=== PATIENT | female | born 1940 | race Two or more races ===

== ENCOUNTER 2017-02-02 08:00 | Outpatient (CLI) | payer MEDICARE, OTHER | END 2017-02-02 08:01 | disposition home or self-care (01) | DX: I10 Essential (primary) hypertension (principal); E78.1 Pure hyperglyceridemia; K21.9 Gastro-esophageal reflux disease without esophagitis ==

== ENCOUNTER 2017-03-30 11:44 | Outpatient (CLI) | payer MEDICARE, OTHER ==
--- NOTE | 2017-03-31 15:39 | Mammography Report ---
DIGITAL SCREENING MAMMOGRAM: 03/30/2017 CLINICAL INDICATION: A 76-year-old, for screening. COMPARISON: 05/2014, 12/2012, 07/2011, 02/2010. TECHNIQUE: Routine CC and MLO projections were obtained of the breasts. FINDINGS: The breasts demonstrate heterogeneously dense fibroglandular parenchyma bilaterally. Punct ate, typically benign calcifications are present. No suspicious masses, clustered microcalcifications , or regions of architectural distortion are identified. IMPRESSION: BENIGN FINDINGS. RECOMMENDATION: ROUTINE ANNUAL SCREENING UNLESS OTHERWISE CLINICALLY INDICATED. BIRADS CATEGORY 2-BENIGN FINDINGS. STANDARD QUALIFYING STATEMENTS 1. This examination was reviewed with the aid of Computer-Aided Detection (CAD). 2. A negative or benign imaging report should not delay biopsy if clinically suspicious findings are present. Consider surgical consultation if warranted. More than 5% of cancers are not identified by i maging. 3. Dense breasts may obscure an underlying neoplasm. JOB #: [id number] EXT JOB #:[id number]
== END 2017-03-30 11:45 | disposition home or self-care (01) ==
LOC: DI 11:44
PROVIDERS: ATTEND Physician Assistant Medical
DX: Z12.31 Encounter for screening mammogram for malignant neoplasm of breast (principal)
CPT/HCPCS: 77067

== ENCOUNTER 2017-08-10 04:53 | Emergency (ER) | payer MEDICARE, OTHER ==
[2017-08-10] MEDS ORDERED: IPRATROPIUM/ALBUTEROL 3 ML NEB INH STA (05:07)
--- NOTE | 2017-08-10 05:11 | ED Physician Documentation ---
PD HPI DYSPNEA - Stated complaint Stated Complaint: SHORTNESS OF BREATH - Chief complaint Chief Complaint: Resp - History obtained from History obtained from: Patient, Family - History of Present Illness Timing - onset: How many weeks ago (3) Timing - onset during: Rest Timing - details: Intermittant, Waxing and waning Improved by: Inhaler/neb Worsened by: Exertion Associated symptoms: Cough, Wheezing. No: Fever, Chest pain / discomfort, Bilateral edema, Unilateral edema Similar symptoms before: Work up / diagnostics, Treatment Recently seen: Clinic - Additional information Additional information: Patient is a 77 year old female with no significant past medical history who is presenting to the emergency department for gurgling in her throat. Patient states that it has been going on for three weeks. Patient states that she saw her pmd who did a chest x-ray and told her she had bronchitis. Patient states that she heard the gurgling tonight so she came in for evaluation. Review of Systems Constitutional: denies: Fever, Chills Eyes: denies: Loss of vision, Photophobia Ears: denies: Ear pain, Drainage/discharge, Foreign body Nose: reports: Congestion. denies: Rhinorrhea / runny nose, Sinus pressure / pain Throat: denies: Sore throat Cardiac: denies: Chest pain / pressure, Palpitations Respiratory: reports: Dyspnea, Cough, Wheezing GI: denies: Abdominal Pain, Nausea, Vomiting, Constipation, Diarrhea : denies: Dysuria, Frequency Skin: denies: Rash, Lesions Musculoskeletal: denies: Neck pain, Back pain, Extremity swelling Neurologic: denies: Generalized weakness, Focal weakness, Headache, Head injury , LOC Immunocompromised: denies: Immunocompromised PD PAST MEDICAL HISTORY - Past Medical History Cardiovascular: Hypertension, High cholesterol Respiratory: None Neuro: TIA Endocrine/Autoimmune: None GI: GERD : None Musculoskeletal: Osteoarthritis Derm: Eczema - Past Surgical History 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 HEENT: Tonsil/Adenoidectomy - Present Medications Home Medications: Ambulatory Orders Medication Instructions Recorded Confirmed Atenolol 50 mg PO DAILY 01/02/15 08/10/17 Lisinopril 5 mg PO DAILY 01/02/15 08/10/17 Pravastatin Sodium 40 mg PO DAILY 01/02/15 08/10/17 Aspirin 325 mg pe PO DAILY 05/17/16 08/10/17 Esomeprazole Magnesium [Nexium] 20 mg PO BID 07/16/16 08/10/17 Albuterol Sulfate [Proventil Hfa 1 - 2 puffs INH Q4H PRN #1 inhaler 08/10/17 Inhaler] Calcium Carbonate/Vitamin D3 1 each PO DAILY 08/10/17 08/10/17 [Calcium 500-Vit D3 600 Caplet] Cholecalciferol (Vitamin D3) 2,000 unit PO DAILY 08/10/17 08/10/17 [Vitamin D] Krill/[place]-3/Dha/Epa/Lipids 1 each PO DAILY 08/10/17 08/10/17 [Krill Oil 350 mg Softgel] L. Acidophilus/L. Rhamnosus 1 each PO DAILY 08/10/17 08/10/17 [Probiotic 15 Billion Cell Cap] Ubidecarenone [Co Q-10] 10 mg PO DAILY 08/10/17 08/10/17 Zinc 50 mg PO DAILY 08/10/17 08/10/17 - Allergies Allergies/Adverse Reactions: Allergies Allergy/AdvReac Type Severity Reaction Status Date / Time Sulfa (Sulfonamide AdvReac Mild bone ache Verified 07/16/16 13:08 Antibiotics) - Social History Does the pt smoke?: No Smoking Status: Never smoker Does the pt drink ETOH?: No Does the pt have substance abuse?: No - Immunizations Immunizations are current?: Yes PD ED PE NORMAL - Vitals Vital signs reviewed: Yes - General General: Alert and oriented X 3, No acute distress - HEENT HEENT: Atraumatic, PERRL, Pharynx benign - Neck Neck: Supple, no meningeal sign, No JVD - Cardiac Cardiac: RRR, No murmur - Abdomen Abdomen: Soft, Non tender, Non distended - Derm Derm: Normal color, Warm and dry, No rash - Extremities Extremities: No deformity, No edema, No calf tenderness / cord - Neuro Neuro: Alert and oriented X 3, No motor deficit, No sensory deficit, Normal speech - Psych Psych: Normal mood PD ED PE EXPANDED - Respiratory Respiratory: Wheezing, Right upper lobe, Right middle lobe, Left upper lobe, Left lower lobe. No: Accessory mm use Results - Vitals Vitals: Vital Signs - 24 hr 08/10/17 08/10/17 08/10/17 05:02 05:30 06:15 Temperature 36.0 C L Heart Rate 88 88 101 H Respiratory 20 20 18 Rate Blood Pressure 175/91 H 164/64 H O2 Saturation 95 95 08/10/17 07:04 Temperature Heart Rate 89 Respiratory 18 Rate Blood Pressure 163/79 H O2 Saturation 100 Oxygen O2 Source Room air - EKG (time done) 0505 Rate: Rate (enter#) (87) Rhythm: NSR, Other (muliple pvcs) Orient: Normal QRS: Normal Compare to prior EKG: Old EKG unavailable - Labs Labs: Laboratory Tests 08/10/17 08/10/17 08/10/17 05:52 05:52 05:52 WBC 8.6 RBC 4.02 L Hgb 12.4 Hct 39.0 MCV 97.1 MCH 31.0 MCHC 31.9 L RDW 13.6 Plt Count 168 MPV 9.9 Neut # 6.0 Lymph # 1.8 [place] # 0.5 Eos # 0.2 Baso # 0.1 Absolute Nucleated RBC 0.00 Nucleated RBC % 0.0 Sodium 141 Potassium 4.5 Chloride 111 Carbon Dioxide 23 Anion Gap 7.0 BUN 27 H Creatinine 1.1 H Estimated GFR (MDRD) 48 L Glucose 106 H Calcium 9.1 Total Bilirubin 0.3 AST 36 ALT 41 Alkaline Phosphatase 113 Troponin I < 0.04 B-Natriuretic Peptide Total Protein 6.5 L Albumin 3.5 Globulin 3.0 Albumin/Globulin Ratio 1.2 Lipase 36 08/10/17 05:52 WBC RBC Hgb Hct MCV MCH MCHC RDW Plt Count MPV Neut # Lymph # [place] # Eos # Baso # Absolute Nucleated RBC Nucleated RBC % Sodium Potassium Chloride Carbon Dioxide Anion Gap BUN Creatinine Estimated GFR (MDRD) Glucose Calcium Total Bilirubin AST ALT Alkaline Phosphatase Troponin I B-Natriuretic Peptide 620 H Total Protein Albumin Globulin Albumin/Globulin Ratio Lipase - Rads (name of study) chest x-ray Radiology: Final report received (small pleural effusion), EMP read contemporaneously (effusion is trace if at all) PD MEDICAL DECISION MAKING - ED course Complexity details: reviewed old records, reviewed results, re-evaluated patient , considered differential, d/w patient, d/w family ED course: Patient was seen and examined at bedside. breathing treatments were ordered for the patient. imaging and ekg was ordered. Patient was found to have irregularities on ekg, but patient stated that she had a known ekg abnormalities. Patient responded well to the breathing treatments. Patient's bnp was slightly elevated but there was no sign of edema. Patient was given the offer of coming into the hospital to stay but stated that she would rather go home and follow up with her doctor. Patient was given strict discharge and return instructions and was stable for discharge with outpatient follow up. Departure - Departure Disposition: Home, Self Care Clinical Impression: Bronchitis Condition: Good Instructions: ED Bronchitis Asthmatic Follow-Up: Claudia Puentes PA-C [Primary Care Provider] - Within 3 Days Prescriptions: Albuterol Sulfate [Proventil Hfa Inhaler] 1 - 2 puffs INH Q4H PRN #1 inhaler PRN Reason: Shortness Of Air/Wheezing Comments: Your diagnostics today showed a slight elevation in your bnp. You should follow up with your pmd today to schedule an echocardiogram. there was no significant fluid collection but it could be contributing to your shortness of breath. It is important that you return to the emergency department for new, worsening or uncontrollable symptoms. Discharge Date/Time: 08/10/17 07:04
[2017-08-10] MEDS ORDERED: IPRATROPIUM/ALBUTEROL 3 ML NEB INH ONE (05:27)
--- NOTE | 2017-08-10 05:48 | XRAY Preliminary Report ---
Exam: XR Chest 2 View PA/LAT IMPRESSION: Nonspecific bilateral effusions, right greater than left. [facility] SITE ID: [id number]
[2017-08-10 06:08] LABS: BASOPHILS # (AUTO) 0.1 10^3/uL (0.0-0.1); BASOPHILS % (AUTO) 0.9 %; EOSINOPHILS # (AUTO) 0.2 10^3/uL (0.0-0.7); EOSINOPHILS % (AUTO) 2.7 %; HGB - HEMOGLOBIN 12.4 g/dL (12.0-16.0); LYMPHOCYTES # (AUTO) 1.8 10^3/uL (1.5-3.5); LYMPHOCYTES % (AUTO) 21.1 %; MEAN CORPUSCULAR HGB CONC 31.9 g/dL (32.0-36.0); MEAN CORPUSCULAR VOLUME 97.1 fL (81.0-99.0); MEAN PLATELET VOLUME 9.9 fL (7.9-10.8); MONOCYTES # (AUTO) 0.5 10^3/uL (0.0-1.0); NEUTROPHILS % (AUTO) 69.3 %; RED BLOOD COUNT 4.02 10^6/uL (4.20-5.40); RED CELL DISTRIBUTION WIDTH 13.6 % (12.0-15.0); UNCORRECTED WHITE BLOOD COUNT 8.6 x10^3/uL; WHITE BLOOD COUNT 8.6 x10^3/uL (4.8-10.8)
[2017-08-10 06:22] LABS: ALBUMIN/GLOBULIN RATIO 1.2 (1.0-2.2); BILIRUBIN,TOTAL 0.3 mg/dL (0.2-1.0); CALCIUM 9.1 mg/dL (8.5-10.3); CREATININE 1.1 mg/dL (0.4-1.0); POTASSIUM 4.5 mmol/L (3.5-5.0); TOTAL PROTEIN 6.5 g/dL (6.7-8.2)
--- NOTE | 2017-08-10 06:25 | XRAY Report ---
EXAM: CHEST RADIOGRAPHY EXAM DATE: 08/10/2017 05:16 AM. CLINICAL HISTORY: Shortness of breath, nonproductive cough. COMPARISON: None. TECHNIQUE: 2 views. FINDINGS: Lungs/Pleura: There is a small right-sided pleural effusion. Minimal left effusion. No consolidation. No pneumothorax. Mediastinum: Normal heart size. Other: None. IMPRESSION: Nonspecific bilateral effusions, right greater than left. [facility] Referring Provider Line: [phone] SITE ID: [id number]
[2017-08-10 07:04] VITALS: BP 163/79
== END 2017-08-10 07:04 | disposition home or self-care (01) ==
LOC: ED 04:53
DX: J40 Bronchitis, not specified as acute or chronic (principal); I10 Essential (primary) hypertension; E78.00 Pure hypercholesterolemia, unspecified; Z86.73 Personal history of transient ischemic attack (TIA), and cerebral infarction without residual deficits; K21.9 Gastro-esophageal reflux disease without esophagitis; M19.90 Unspecified osteoarthritis, unspecified site
CPT/HCPCS: 36415; 71020; 80053; 83690; 83880; 84484; 85025; 93005; 94640; 99283; J7620

== ENCOUNTER 2017-08-12 12:39 | Outpatient (CLI) | payer MEDICARE, OTHER | END 2017-08-12 12:40 | disposition home or self-care (01) | LOC: DI 12:39 | PROVIDERS: ATTEND Physician Assistant Medical | DX: R06.09 Other forms of dyspnea (principal); I08.1 Rheumatic disorders of both mitral and tricuspid valves | CPT/HCPCS: 93306 ==

== ENCOUNTER 2017-08-25 09:57 | Outpatient (CLI) | payer MEDICARE, OTHER ==
[2017-08-26 09:41] LABS: CALCIUM 9.5 mg/dL (8.5-10.3); CREATININE 1.5 mg/dL (0.4-1.0); POTASSIUM 4.8 mmol/L (3.5-5.0)
== END 2017-08-25 09:58 | disposition home or self-care (01) ==
LOC: LAB.WCP 09:57
PROVIDERS: ATTEND Family Medicine
DX: I50.9 Heart failure, unspecified (principal)
CPT/HCPCS: 36415; 80048; 83880

== ENCOUNTER 2017-11-01 08:00 | Outpatient (CLI) | payer MEDICARE, OTHER ==
[2017-11-01 13:32] LABS: BUN - BLOOD UREA NITROGEN 21 mg/dL (6-20); CALCIUM 9.3 mg/dL (8.5-10.3); CARBON DIOXIDE - CO2 26 mmol/L (21-32); CHLORIDE 103 mmol/L (101-111); CHOL/HDL RATIO 3.1 (<4.4); CHOLESTEROL 129 mg/dL; CREATININE 1.1 mg/dL (0.4-1.0); GFR - MDRD 48 (>89); GLUCOSE 77 mg/dL (70-100); HDL CHOLESTEROL 42 mg/dL; LDL CHOLESTEROL,CALCULATED 62 mg/dL; LDL/HDL RATIO 1.5 (<4.4); MAGNESIUM 2.3 mg/dL (1.7-2.8); SODIUM 137 mmol/L (135-145); VLDL CHOLESTEROL 25 mg/dL
== END 2017-11-01 08:01 | disposition home or self-care (01) ==
LOC: LAB.WCP 08:00
PROVIDERS: ATTEND Internal Medicine Cardiovascular Disease
DX: I10 Essential (primary) hypertension (principal); R00.2 Palpitations
CPT/HCPCS: 36415; 80048; 80061; 83735; 84443; 86430

== ENCOUNTER → 2017-11-03 | Outpatient (CLI) | payer MEDICARE, OTHER | LOC: LAB.R 08:00 | PROVIDERS: ATTEND Physician Assistant Medical | DX: R19.7 Diarrhea, unspecified (principal) | CPT/HCPCS: 81599; 83630; 87045; 87046; 87177; 87209; 87338; 87493 ==

== ENCOUNTER 2017-11-16 08:00 | Outpatient (CLI) | payer MEDICARE, OTHER ==
[2017-11-16 20:40] LABS: H. PYLORIS ANTIGEN STL NEGATIVE (Negative)
== END 2017-11-16 08:01 | disposition home or self-care (01) ==
LOC: LAB.R 08:00
PROVIDERS: ATTEND Physician Assistant Medical
DX: R19.7 Diarrhea, unspecified (principal)
CPT/HCPCS: 81599; 83630; 87045; 87046; 87177; 87209; 87329; 87338; 87493

== ENCOUNTER 2017-12-29 08:00 | Outpatient (CLI) | payer MEDICARE, OTHER ==
[2017-12-29 19:01] LABS: BASOPHILS # (AUTO) 0.1 10^3/uL (0.0-0.1); BASOPHILS % (AUTO) 0.9 %; EOSINOPHILS # (AUTO) 0.1 10^3/uL (0.0-0.7); EOSINOPHILS % (AUTO) 0.9 %; HGB - HEMOGLOBIN 12.7 g/dL (12.0-16.0); LYMPHOCYTES # (AUTO) 2.2 10^3/uL (1.5-3.5); LYMPHOCYTES % (AUTO) 20.4 %; MEAN CORPUSCULAR HGB CONC 31.2 g/dL (32.0-36.0); MEAN CORPUSCULAR VOLUME 99.1 fL (81.0-99.0); MEAN PLATELET VOLUME 13.6 fL (7.9-10.8); MONOCYTES # (AUTO) 0.9 10^3/uL (0.0-1.0); MONOCYTES % (AUTO) 8.3 %; NEUTROPHILS # (AUTO) 7.5 10^3/uL (1.5-6.6); NEUTROPHILS % (AUTO) 69.5 %; PLT - PLATELET COUNT 173 10^3/uL (130-450); RED BLOOD COUNT 4.11 10^6/uL (4.20-5.40); WHITE BLOOD COUNT 10.8 x10^3/uL (4.8-10.8)
[2017-12-29 19:24] LABS: ALBUMIN 3.6 g/dL (3.2-5.5); ALBUMIN/GLOBULIN RATIO 1.2 (1.0-2.2); BILIRUBIN,TOTAL 0.7 mg/dL (0.2-1.0); CALCIUM 8.9 mg/dL (8.5-10.3); CREATININE 1.1 mg/dL (0.4-1.0); TOTAL PROTEIN 6.5 g/dL (6.7-8.2)
== END 2017-12-29 08:01 | disposition home or self-care (01) ==
LOC: LAB.WCP 08:00
PROVIDERS: ATTEND Physician Assistant Medical
DX: K52.9 Noninfective gastroenteritis and colitis, unspecified (principal)
CPT/HCPCS: 36415; 80053; 83516; 83690; 85025; 85651

== ENCOUNTER 2018-05-02 09:25 | Outpatient (CLI) | payer MEDICARE, OTHER ==
--- NOTE | 2018-05-02 11:00 | Ultrasound Report ---
Procedure Date: 05/02/2018 Accession Number: [id number] / [id number] Procedure: US - Abdomen Limited CPT Code: FULL RESULT: EXAM: Abdomen Limited DATE: 05/02/2018 10:42 AM CLINICAL HISTORY: DIARRHEA,CHRONIC COMPARISON: None. TECHNIQUE: Real-time scanning was performed with static images obtained. FINDINGS: The liver measures 13 cm. Hepatic echotexture is normal. No intrahepatic biliary dilatation. The gallbladder demonstrates a small focus of adenomyomatosis of the wall. No cholelithiasis, gallbladder wall thickening, or pericholecystic fluid is present. The common bile duct measures 4 mm. The right kidney measures 8.1 cm, and demonstrates no hydronephrosis. IMPRESSION: Incidental adenomyomatosis of the gallbladder wall. No evidence of cholelithiasis or biliary obstruction. [facility]
== END 2018-05-02 09:26 | disposition home or self-care (01) ==
LOC: DI 09:25
PROVIDERS: ATTEND Physician Assistant Medical
DX: K52.9 Noninfective gastroenteritis and colitis, unspecified (principal)
CPT/HCPCS: 76705

== ENCOUNTER 2019-07-06 08:00 | Outpatient (CLI) | payer MEDICARE, OTHER ==
[2019-07-06 11:51] LABS: BASOPHILS # (AUTO) 0.1 10^3/uL (0.0-0.1); BASOPHILS % (AUTO) 0.7 %; LYMPHOCYTES # (AUTO) 2.5 10^3/uL (1.5-3.5); MEAN CORPUSCULAR VOLUME 103.4 fL (81.0-99.0); RED BLOOD COUNT 3.77 10^6/uL (4.20-5.40); RED CELL DISTRIBUTION WIDTH 13.2 % (12.0-15.0)
[2019-07-06 12:03] LABS: EOSINOPHILS # (AUTO) 0.5 10^3/uL (0.0-0.7); EOSINOPHILS % (AUTO) 4.4 %; HGB - HEMOGLOBIN 12.2 g/dL (12.0-16.0); LYMPHOCYTES % (AUTO) 23.7 %; MEAN CORPUSCULAR HEMOGLOBIN 32.4 pg (27.0-31.0); MEAN CORPUSCULAR HGB CONC 31.3 g/dL (32.0-36.0); MEAN PLATELET VOLUME 13.6 fL (7.9-10.8); MONOCYTES # (AUTO) 0.9 10^3/uL (0.0-1.0); MONOCYTES % (AUTO) 8.2 %; NEUTROPHILS # (AUTO) 6.7 10^3/uL (1.5-6.6); NEUTROPHILS % (AUTO) 62.4 %; PLT - PLATELET COUNT 165 10^3/uL (130-450); WHITE BLOOD COUNT 10.7 x10^3/uL (4.8-10.8)
[2019-07-06 12:18] LABS: ALBUMIN 3.5 g/dL (3.2-5.5); ALBUMIN/GLOBULIN RATIO 1.1 (1.0-2.2); ALKALINE PHOSPHATASE 96 IU/L (42-121); ALT ALANINE AMINOTRANSFERASE 15 IU/L (10-60); AST ASPARTATE AMINOTRANSFERASE 17 IU/L (10-42); BILIRUBIN,TOTAL 0.4 mg/dL (0.2-1.0); BUN - BLOOD UREA NITROGEN 19 mg/dL (6-20); CALCIUM 8.9 mg/dL (8.5-10.3); CARBON DIOXIDE - CO2 27 mmol/L (21-32); CHLORIDE 110 mmol/L (101-111); CHOLESTEROL 128 mg/dL; CREATININE 1.1 mg/dL (0.4-1.0); GFR - MDRD 48 (>89); GLUCOSE 93 mg/dL (70-100); HDL CHOLESTEROL 65 mg/dL; LDL CHOLESTEROL,CALCULATED 35 mg/dL; LDL/HDL RATIO 0.5 (<4.4); SODIUM 143 mmol/L (135-145); TOTAL PROTEIN 6.6 g/dL (6.7-8.2); VLDL CHOLESTEROL 28 mg/dL
[2019-07-06 13:11] LABS: PLATELET ESTIMATE, MANUAL NORMAL (130-450,000) (NORMAL); PLATELET MORPHOLOGY 1+ LARGE PLATELETS (NORMAL); RBC MORPHOLOGY (MULTIPLE) 1+ MACROCYTOSIS (NORMAL)
== END 2019-07-06 23:59 | disposition home or self-care (01) ==
LOC: LAB.WCP 08:00
PROVIDERS: ATTEND Physician Assistant Medical
DX: E78.1 Pure hyperglyceridemia (principal); J30.9 Allergic rhinitis, unspecified
CPT/HCPCS: 36415; 80053; 80061; 83721; 85025

== ENCOUNTER 2019-12-26 17:11 | Observation (INO) | payer MEDICARE, OTHER ==
--- NOTE | 2019-12-26 17:33 | ED Physician Documentation ---
PD HPI FOCAL NEURO - Stated complaint Stated Complaint: STROKE LIKE SYMPT - Chief complaint Chief Complaint: Neuro - History obtained from History obtained from: Patient, Family - History of Present Illness Timing - onset: Other (Last seen normal approximately an hour and a half ago) Severity of deficit: Mild Weakness: Face, Right. No: Arm, Hand, Leg, Foot, Left Numbness: No: Face, Arm, Hand, Leg, Foot, Right, Left Associated symptoms: No: Headache, Nausea / vomiting, Seizure, Syncope, Fall, Head injury, Chest pain, Neck pain, Back pain, Fever Contributing factors: negative: Anticoagulated Baseline status: positive: A&OX3, ambulatory, indep Similar symptoms before: Diagnosis (Has had a TIA in the past) Recently seen: Not recently seen - Additional information Additional information: Patient states she is felt like she has had difficulty finding her words all day today. She states she has felt mildly confused. noticed the right facial droop approximately 45 minutes prior to arrival. He last saw her about 45 minutes to an hour before that. He states that his dramatically improved since they were at home. 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 Acidophilus/L. Rhamnosus 1 each PO DAILY 08/10/17 08/10/17 [Probiotic 15 Billion Cell Cap] Ubidecarenone [Co Q-10] 10 mg PO DAILY 08/10/17 08/10/17 Zinc 50 mg PO DAILY 08/10/17 08/10/17 - Allergies Allergies/Adverse Reactions: Allergies Allergy/AdvReac Type Severity Reaction Status Date / Time Sulfa (Sulfonamide AdvReac Mild bone ache Verified 12/26/19 17:14 Antibiotics) - Social History Does the pt smoke?: No Smoking Status: Never smoker Does the pt drink ETOH?: No Does the pt have substance abuse?: No - Immunizations Immunizations are current?: Yes PD ED PE NORMAL - Vitals Vital signs reviewed: Yes - General General: Alert and oriented X 3, No acute distress, Well developed/nourished - HEENT HEENT: Moist mucous membranes, Other (Patient also has mild swelling to the right side of the face. No gingival abscess. No dental abscess. No erythema) - Neck Neck: Supple, no meningeal sign - Cardiac Cardiac: RRR, Strong equal pulses - Respiratory Respiratory: No respiratory distress, Clear bilaterally - Abdomen Abdomen: Soft, Non tender, Non distended - Back Back: No spinal TTP - Derm Derm: Warm and dry - Extremities Extremities: No edema - Neuro Neuro: Alert and oriented X 3, No sensory deficit, Normal speech - Psych Psych: Normal mood, Normal affect NIHSS - Time Time: 17:25 - Level of Consciousness Level of consciousness: (0) Alert, Keenly responsive LOC Questions: (0) Answers both Q's correct LOC Commands: (0) Performs both correctly - Gaze Best Gaze: (0) Normal - Visual Visual: (0) No loss - Facial Palsy Facial Palsy: (1) Minor paralysis - Motor Arms (both separate) Motor Arm (right): (0) No drift Motor Arm (left): (0) No drift - Motor Legs (both separate) Motor Leg (right): (0) No drift Motor Leg (left): (0) No drift - Limb Ataxia Limb Ataxia: (0) Absent - Sensory Sensory: (0) Normal - Best Language Best Language: (0) No aphasia - Dysarthria Dysarthria: (0) Normal - Extinction and Inattention (formally neg Extinction and inattention: (0) No abnormality - Total Score/Results Total Score/Result: 1 Results - Vitals Vitals: Vital Signs - 24 hr 12/26/19 12/26/19 12/26/19 17:15 18:00 18:30 Temperature 36.7 C Heart Rate 99 91 95 Respiratory 14 20 19 Rate Blood Pressure 169/68 H 135/60 H 154/71 H O2 Saturation 98 99 100 12/26/19 19:00 Temperature Heart Rate 84 Respiratory 18 Rate Blood Pressure 133/60 H O2 Saturation 99 Oxygen O2 Source Room air - EKG (time done) 1752 Rate: Rate (enter#) (93) Rhythm: NSR [place]: Normal Intervals: Normal NC QRS: Normal Ischemia: Normal ST segments - Labs Labs: Laboratory Tests 12/26/19 12/26/19 12/26/19 17:32 17:32 17:32 WBC 11.6 H RBC 3.46 L Hgb 11.0 L Hct 35.4 L MCV 102.3 H MCH 31.8 H MCHC 31.1 L RDW 13.3 Plt Count 260 MPV 10.4 Neut # (Auto) 7.2 H Lymph # (Auto) 2.9 [place] # (Auto) 1.3 H Eos # (Auto) 0.1 Baso # (Auto) 0.1 Absolute Nucleated RBC 0.00 Nucleated RBC % 0.0 PT 12.7 H INR 1.1 APTT 28.7 Sodium 135 Potassium 3.8 Chloride 102 Carbon Dioxide 24 Anion Gap 9.0 BUN 20 Creatinine 1.2 H Estimated GFR (MDRD) 43 L Glucose 108 H Calcium 9.0 Total Bilirubin < 0.2 L AST 34 ALT 32 Alkaline Phosphatase 146 H Total Protein 7.0 Albumin 3.4 Globulin 3.6 Albumin/Globulin Ratio 0.9 L Lipase 63 H Urine Color Urine Clarity Urine pH Ur Specific [place] Urine Protein Urine Glucose (UA) Urine Ketones Urine Occult Blood Urine Nitrite Urine Bilirubin Urine Urobilinogen Ur Leukocyte Esterase Urine RBC Urine WBC Ur Epithelial Cells Ur Squamous Epith Cells Urine Bacteria Ur Microscopic Review Urine Culture Comments 12/26/19 18:29 WBC RBC Hgb Hct MCV MCH MCHC RDW Plt Count MPV Neut # (Auto) Lymph # (Auto) [place] # (Auto) Eos # (Auto) Baso # (Auto) Absolute Nucleated RBC Nucleated RBC % PT INR APTT Sodium Potassium Chloride Carbon Dioxide Anion Gap BUN Creatinine Estimated GFR (MDRD) Glucose Calcium Total Bilirubin AST ALT Alkaline Phosphatase Total Protein Albumin Globulin Albumin/Globulin Ratio Lipase Urine Color YELLOW Urine Clarity CLEAR Urine pH 6.0 Ur Specific [place] <=1.005 Urine Protein NEGATIVE Urine Glucose (UA) NEGATIVE Urine Ketones NEGATIVE Urine Occult Blood NEGATIVE Urine Nitrite NEGATIVE Urine Bilirubin NEGATIVE Urine Urobilinogen 0.2 (NORMAL) Ur Leukocyte Esterase SMALL H Urine RBC None Seen Urine WBC 11-25 H Ur Epithelial Cells RARE Transitional Ur Squamous Epith Cells NONE SEEN Urine Bacteria None Seen Ur Microscopic Review INDICATED Urine Culture Comments INDICATED - Rads (name of study) CT head Radiology: Prelim report reviewed, EMP read contemporaneously, See rad report CT angio head Radiology: Prelim report reviewed, EMP read contemporaneously, See rad report Ct angio neck Radiology: Prelim report reviewed, EMP read contemporaneously, See rad report PD MEDICAL DECISION MAKING - ED course Complexity details: reviewed results, re-evaluated patient, considered differential, d/w patient, d/w family ED course: No acute findings on CT of the head. Does appear to have a facial cellulitis on CT Angio of the neck. 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 Unclear etiology of her symptoms. Possible that the cellulitis inflamed the facial nerve causing the facial droop. However given her age and history of a TIA in the past, I think it is reasonable to place her in observation and have an MRI in the morning as well as further risk stratification. Given Rocephin IV. This is for the UTI and the facial cellulitis. Discussed the case with Dr. Barnard, hospitalist who accepts This document was made in part using voice recognition software. While efforts are made to proofread this document, sound alike and grammatical errors may occur. Departure - Departure Disposition: ED Place in Observation Clinical Impression: TIA (transient ischemic attack), Facial cellulitis Condition: Stable
[2019-12-26] MEDS ORDERED: IOVERSOL 320 100 ML VIAL IVP ONE ×2 (17:35→17:52)
[2019-12-26 17:46] LABS: BASOPHILS # (AUTO) 0.1 10^3/uL (0.0-0.1); BASOPHILS % (AUTO) 0.4 %; EOSINOPHILS # (AUTO) 0.1 10^3/uL (0.0-0.7); EOSINOPHILS % (AUTO) 0.9 %; LYMPHOCYTES # (AUTO) 2.9 10^3/uL (1.5-3.5); LYMPHOCYTES % (AUTO) 24.7 %; MEAN CORPUSCULAR HEMOGLOBIN 31.8 pg (27.0-31.0); MEAN CORPUSCULAR HGB CONC 31.1 g/dL (32.0-36.0); MEAN CORPUSCULAR VOLUME 102.3 fL (81.0-99.0); MEAN PLATELET VOLUME 10.4 fL (7.9-10.8); MONOCYTES # (AUTO) 1.3 10^3/uL (0.0-1.0); MONOCYTES % (AUTO) 10.9 %; NEUTROPHILS # (AUTO) 7.2 10^3/uL (1.5-6.6); NEUTROPHILS % (AUTO) 62.2 %; PLT - PLATELET COUNT 260 10^3/uL (130-450); RED BLOOD COUNT 3.46 10^6/uL (4.20-5.40); RED CELL DISTRIBUTION WIDTH 13.3 % (12.0-15.0); WHITE BLOOD COUNT 11.6 x10^3/uL (4.8-10.8)
[2019-12-26 17:49] LABS: INR 1.1 (0.8-1.2); PT - PROTHROMBIN TIME 12.7 secs (9.9-12.6)
--- NOTE | 2019-12-26 17:56 | CT Report ---
Reason: R facial droop Procedure Date: 12/26/2019 Accession Number: [id number] / [id number] Procedure: CT - Head W/O Stroke Protocol CPT Code: Addended Final Report FULL RESULT: EXAM: CT HEAD EXAM DATE: 12/26/2019 05:38 PM. CLINICAL HISTORY: R facial droop. COMPARISON: MRI BRAIN W/O CONTRAST 04/05/2012 10:14 PM. TECHNIQUE: Multiaxial CT images were obtained from the foramen magnum to the vertex. Reformats: Sagittal and coronal. IV contrast: None. In accordance with CT protocol optimization, one or more of the following dose reduction techniques were utilized for this exam: automated exposure control, adjustment of mA and/or KV based on patient size, or use of iterative reconstructive technique. FINDINGS: Parenchyma: No intraparenchymal hemorrhage. No evidence of mass, midline shift, or CT findings of acute infarction. [place]-white differentiation is distinct. Scattered chronic microangiopathic white matter changes are evident. Extraaxial Spaces: Normal for age. No subdural or epidural collections identified. Ventricles: Stable size and configuration. Sinuses and orbits: Status post bilateral lens replacement surgery. Imaged paranasal sinuses, orbits, and mastoids show no significant abnormality. Bones: No evidence of fracture or calvarial defect. Other: None. IMPRESSION: No CT evidence of acute intracranial abnormality, specifically no CT evidence of acute infarct, intracranial hemorrhage, mass effect, midline shift, or hydrocephalus. ASPECTS 10. [facility] The critical test notification system was initiated by Dr. Manny Ruvalcaba at 05:55 PM on 12/26/2019. ADDENDUM: 12/26/19 17:58 The above critical test findings were discussed with Dragan Park by Dr. Manny Ruvalcaba at 05:58 PM on 12/26/2019.
[2019-12-26 17:57] LABS: ALBUMIN 3.4 g/dL (3.2-5.5); ALBUMIN/GLOBULIN RATIO 0.9 (1.0-2.2); ALKALINE PHOSPHATASE 146 IU/L (42-121); ALT ALANINE AMINOTRANSFERASE 32 IU/L (10-60); AST ASPARTATE AMINOTRANSFERASE 34 IU/L (10-42); BILIRUBIN,TOTAL < 0.2 mg/dL (0.2-1.0); BUN - BLOOD UREA NITROGEN 20 mg/dL (6-20); CARBON DIOXIDE - CO2 24 mmol/L (21-32); CHLORIDE 102 mmol/L (101-111); CREATININE 1.2 mg/dL (0.4-1.0); GFR - MDRD 43 (>89); GLUCOSE 108 mg/dL (70-100); LIPASE 63 U/L (22-51); PARTIAL THROMBOPLASTIN TIME 28.7 secs (24.9-33.3); SODIUM 135 mmol/L (135-145)
--- NOTE | 2019-12-26 18:19 | CT Report ---
Reason: R facial droop Procedure Date: 12/26/2019 Accession Number: [id number] / [id number] Procedure: CT - ANGIO HEAD W/WO CPT Code: Final Report FULL RESULT: EXAM: CT ANGIOGRAM HEAD. CT SCAN OF THE HEAD with CONTRAST. EXAM DATE: 12/26/2019 05:45 PM CLINICAL HISTORY: R facial droop. COMPARISON: None. TECHNIQUE: - CT Scan Head: Using a multidetector scanner, axial images were acquired from the foramen magnum to the skull vertex following contrast administration. - CT Angiogram: Using a multidetector scanner, high-resolution axial images were acquired from the skull base through vertex following rapid infusion of intravenous contrast. Reformats: Multiplanar MIP reformats were reconstructed. NASCET criteria used for stenosis measurement. IV Contrast: 80 mL OPTIRAY 320. In accordance with CT protocol optimization, one or more of the following dose reduction techniques were utilized for this exam: automated exposure control, adjustment of mA and/or KV based on patient size, or use of iterative reconstructive technique. FINDINGS: NON-CONTRAST HEAD: Noncontrast CT head dictated separately. POST-CONTRAST HEAD: No abnormal enhancement. CT ANGIOGRAM HEAD: RIGHT: Internal Carotid artery: Mild atherosclerosis right carotid siphon. No hemodynamically significant narrowing. No evidence of dissection. No evidence of aneurysm along the intracranial ICA. Anterior Cerebral Artery: Patent without significant stenosis, aneurysm, or vascular malformation. Middle Cerebral Artery: Patent without significant stenosis, aneurysm, or vascular malformation. Posterior Cerebral Artery: Patent without significant stenosis, aneurysm, or vascular malformation. Posterior Communicating Artery: Patent. No aneurysm. Vertebral Artery: Patent without significant stenosis. No evidence of dissection. LEFT: Internal Carotid artery: Mild atherosclerosis left carotid siphon. No hemodynamically significant narrowing. No evidence of dissection. No evidence of aneurysm along the intracranial ICA. Anterior Cerebral Artery: Patent without significant stenosis, aneurysm, or vascular malformation. Middle Cerebral Artery: Patent without significant stenosis, aneurysm, or vascular malformation. Posterior Cerebral Artery: Patent without significant stenosis, aneurysm, or vascular malformation. Posterior Communicating Artery: Patent. No aneurysm. Vertebral Artery: Patent without significant stenosis. No evidence of dissection. CENTRAL: Anterior Communicating Artery: Patent. No aneurysm. 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 IMPRESSION: CT HEAD: 1. Noncontrast CT head dictated separately. 2. No abnormal enhancement on the postcontrast CT head. CTA HEAD: 1. No CTA evidence of hemodynamically significant stenosis, large vessel occlusion, acute dissection, or vascular malformation within intracranial arteries. 2. 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 No other acute findings. [facility]
--- NOTE | 2019-12-26 18:26 | CT Report ---
Reason: R facial droop Procedure Date: 12/26/2019 Accession Number: [id number] / [id number] Procedure: CT - ANGIO NECK W CPT Code: Final Report FULL RESULT: EXAM: CT ANGIOGRAM NECK EXAM DATE: 12/26/2019 05:45 PM. CLINICAL HISTORY: 79-year-old female. R facial droop. COMPARISON: None. TECHNIQUE: Routine axial helical imaging was performed from the skull base through the aortic arch. Reconstructions: Routine multiplanar 3D MIP reconstructions. IV Contrast: 80 mL OPTIRAY 320. Evaluation of arterial stenosis is based on a NASCET method of measurement. In accordance with CT protocol optimization, one or more of the following dose reduction techniques were utilized for this exam: automated exposure control, adjustment of mA and/or KV based on patient size, or use of iterative reconstructive technique. FINDINGS: Right Carotid: The common carotid, internal carotid, and external carotid arteries are widely patent. No dissection, significant atherosclerotic plaque, or calcification identified. Left Carotid: The common carotid, internal carotid, and external carotid arteries are widely patent. No dissection, significant atherosclerotic plaque, or calcification identified. Vertebrals: The vertebrobasilar system shows no stenoses. Intracranial Circulation: Concurrently obtained CTA head dictated separately. Other: The visualized lung apices are clear. Mild to moderate multilevel degenerative spondylosis, no acute fracture or traumatic subluxation. There is edema and inflammatory change along the right face, involving the right cheek and extending to the level of the mandible (for example series 2 image 151). This likely represent soft tissue cellulitis. IMPRESSION: 1. Unremarkable neck CT angiogram. No hemodynamically significant stenoses. 2. Concurrently obtained CTA head dictated separately. 3. Edema and inflammatory change along the right face, involving the right cheek and extending to the level of the mandible (for example series 2 image 151). This likely represent soft tissue cellulitis. RADIA
[2019-12-26] MEDS ORDERED: ASPIRIN CHEW 81 MG TABLET PO STA (18:28)
[2019-12-26] MEDS ORDERED: cefTRIAXone 1 GM VIAL IVP STA (18:30)
[2019-12-26 18:35] LABS: BILIRUBIN,URINE NEGATIVE (NEGATIVE); GLUCOSE, URINE (UA) NEGATIVE (NEGATIVE); KETONES,URINE (UA) NEGATIVE (NEGATIVE); LEUKOCYTE ESTERASE, URINE SMALL (NEGATIVE); NITRITE,URINE NEGATIVE (NEGATIVE); OCCULT BLOOD,URINE NEGATIVE (NEGATIVE); PROTEIN,URINE NEGATIVE (NEGATIVE); UROBILINOGEN,URINE 0.2 (NORMAL) E.U./dL (NORMAL)
[2019-12-26 18:42] LABS: CLARITY,URINE CLEAR (CLEAR)
[2019-12-26 18:50] LABS: BACTERIA,URINE None Seen /HPF (None Seen); EPITHELIAL CELLS,UR RARE Transitional /HPF (<= Few); RBC,URINE None Seen /HPF (0-5); SQUAMOUS EPITHELIAL CELL,UR NONE SEEN (<= Few)
[2019-12-26] MEDS ORDERED: SODIUM CHLORIDE FLUSH 0.9% 10 ML SYRINGE IVP PRN (19:06)
--- NOTE | 2019-12-26 19:10 | HISTORY & PHYSICAL EXAMINATION ---
Chief Complaint - Chief Complaint Chief Complaint: right facial droop History of Present Illness - Admitted From Admitted From:: [facility] - History Obtained From Records Reviewed: yes History obtained from: patient - History of Present Illness HPI Comment/Other: Patient is an 79 y/o female with previous Hx of TIA in 2011 who was brought to the ED by her after he noticed that she had a right facial droop. This was around 4:00-4:30pm. By the time they arrived the ED, it had resolved. However it was noticed by the ED physician that the lower half of the right side of her face appeared swollen and mildly erythematous. She also reported episodes of confusion at home over the past week during which she seems to forget how to do things she has been doing routinely for many years. She denied dizziness, double-vision, headache, ataxia, dysarthria, dysphagia, chest pain, dyspnea, abdominal pain, nausea, vomiting, fever or chills. She recently underwent an EGD a few days ago for ?small intestinal stricture. Work up in the ED included CT brain w/o contrast, CTA head and neck. There was no sign of brain bleed. A 2mm aneurysm was noted. The swelling on the right side of the patient's face was again noted and thought to be consistent with cellulitis. As a result of her symptoms she was presented for admission for a TIA/CVA work up. History - Past Medical History Cardiovascular: reports: Hypertension, High cholesterol Respiratory: reports: None Neuro: reports: TIA Endocrine/Autoimmune: reports: None GI: reports: GERD : reports: None Musculoskeletal: reports: Osteoarthritis Derm: reports: Eczema MRSA Hx?: No - Past Surgical History /CANCER REGISTRAR: reports: Hysterectomy HEENT: reports: Tonsil/Adenoidectomy - Family & Social History Family History: Mother: , CAD (at (( y/o), Father: , Cancer (at 93 y/o from bladder cancer) Family History Comment/Other: son: blood clot. On coumadin Social History Notes: She does not smoke, consume alcohol or illicit drugs. She lives at home with her Meds/Allgy - Home Medications Home Medications: Ambulatory Orders Medication Instructions Recorded Confirmed Atenolol 50 mg PO DAILY 01/02/15 08/10/17 Pravastatin Sodium 40 mg PO DAILY 01/02/15 08/10/17 lisinopriL [Lisinopril] 5 mg PO DAILY 01/02/15 08/10/17 Calcium Carbonate/Vitamin D3 1 each PO DAILY 08/10/17 08/10/17 [Calcium 500-Vit D3 600 Caplet] Cholecalciferol (Vitamin D3) 2,000 unit PO DAILY 08/10/17 08/10/17 [Vitamin D] Krill/Jackson-3/Dha/Epa/Lipids 1 each PO DAILY 08/10/17 08/10/17 [Krill Oil 350 mg Softgel] L. Acidophilus/L. Rhamnosus 1 each PO DAILY 08/10/17 08/10/17 [Probiotic 15 Billion Cell Cap] Ubidecarenone [Co Q-10] 10 mg PO DAILY 08/10/17 08/10/17 Zinc 50 mg PO DAILY 08/10/17 08/10/17 - Allergies Allergies/Adverse Reactions: Allergies Allergy/AdvReac Type Severity Reaction Status Date / Time Sulfa (Sulfonamide AdvReac Mild bone ache Verified 12/26/19 17:14 Antibiotics) Review of Systems - Constitutional Constitutional: denies: Fatigue, Fever, Chills, Malaise, Weakness - Eyes Eyes: denies: Pain, Blurred vision, Vision loss, Dipolpia - Ears, Nose & Throat Ears, Nose & Throat: denies: Tinnitus, Vertigo, Sore throat - Cardiovascular Cariovascular: denies: Irregular heart rate, Palpitations, Chest pain, Edema, Lightheadedness, Syncope, Exertional dyspnea, Decr. exercise tolerance - Respiratory Respiratory: denies: Cough, Sputum production, Wheezing, SOB at rest, SOB with exertion - Gastrointestinal Gastrointestinal: denies: Abdominal pain, Abdominal distention, Constipation, Diarrhea, Nausea, Vomiting, Reflux/heartburn - Genitourinary Genitourinary: denies: Dysuria, Frequency, Urgency, Hematuria - Musculoskeletal Musculoskeletal: denies: Muscle pain, Back pain, Muscle aches - Integumentary Integumentary: denies: Rash, Pruritis, Lesions, Dryness - Neurological Neurological: denies: General weakness, Focal weakness, Headache, Dizziness, Numbness, Abnormal gait - Psychiatric Psychiatric: denies: Depression, Anxiety - Endocrine Endocrine: denies: Polyuria, Polydypsia - Hematologic/Lymphatic Hematologic/Lymphatic: denies: Anemia, Bruising, Petechiae, Blood clots Prior Level of Functionality: She independent of activities of daily living. Exam - Vital Signs Vital Signs: Vital Signs x48h Temp Pulse Resp BP Pulse Ox 12/26/19 19:00 84 18 133/60 H 99 12/26/19 18:30 95 19 154/71 H 100 12/26/19 18:00 91 20 135/60 H 99 12/26/19 17:15 36.7 C 99 14 169/68 H 98 - Physical Exam General Appearance: positive: No acute distress, Alert Eyes Bilateral: positive: Normal inspection, PERRL, EOMI ENT: positive: ENT inspection nml, No signs of dehydration Neck: positive: Nml inspection, No JVD, Trachea midline Respiratory: positive: Chest non-tender, No respiratory distress, Breath sounds nml. negative: Wheezes, Rales, Rhonchi Cardiovascular: positive: Regular rate & rhythm, No murmur Abdomen: positive: Non-tender, No organomegaly, Nml bowel sounds, No distention. negative: Guarding, Rebound Back: positive: Nml inspection Skin: positive: Other (swelling on right side of face. mildly hyperemic) Extremities: positive: Non-tender, Full ROM, Nml appearance, No pedal edema Neurologic/Psychiatric: positive: Oriented x3, CN's nml (2-12), Motor nml, Sensation nml, Mood/affect nml. negative: Facial droop, Slurred/abnml speech Conclusion/Plan - Problem List (1) TIA (transient ischemic attack) Conclusion/Plan: CT head and CTA head and neck were unremarkable for any acute process MRI brain, 2D echo, lipid panel, HgA1c ordered Neuro check qshift Patient given a full dose aspirin in the ED On pravastatin 40mg qpm at home. Will resume On rtpml-5-kntmq acids (2) Facial cellulitis Conclusion/Plan: Patient give 1g rocephin IV in the ED Will give 1g rocephin in the am. Will consider augmentin upon discharge (3) Hypertension Conclusion/Plan: Currently permissive hypertension Will resume atenolol and lisinopril when appropriate to do so. (4) Hyperlipidemia Conclusion/Plan: On pravastatin and fnfeq-1-yxpih acids - Lab Results Fish Bones: 12/26/19 17:32 12/26/19 17:32 Core Measures - Anticipated LOS I expect patient to be DC'd or transferred within 96 hours.: Yes - DVT/VTE - Prophylaxis VTE/DVT Device ordered at admit?: Yes VTE/DVT Prophylaxis med ordered at admit?: Yes
[2019-12-26] MEDS ORDERED: PRAVASTATIN 40 MG TABLET PO SCH (23:47)
[2019-12-27] MEDS: SODIUM CHLORIDE FLUSH 0.9% 10 ML SYRINGE IVP SCH ×3 (00:54→18:29)
[2019-12-27 05:10] LABS: BASOPHILS # (AUTO) 0.1 10^3/uL (0.0-0.1); BASOPHILS % (AUTO) 0.6 %; EOSINOPHILS # (AUTO) 0.1 10^3/uL (0.0-0.7); EOSINOPHILS % (AUTO) 1.5 %; HGB - HEMOGLOBIN 10.2 g/dL (12.0-16.0); LYMPHOCYTES % (AUTO) 22.6 %; MEAN CORPUSCULAR HEMOGLOBIN 31.8 pg (27.0-31.0); MEAN CORPUSCULAR HGB CONC 31.3 g/dL (32.0-36.0); MEAN CORPUSCULAR VOLUME 101.6 fL (81.0-99.0); MEAN PLATELET VOLUME 10.6 fL (7.9-10.8); MONOCYTES % (AUTO) 11.5 %; NEUTROPHILS # (AUTO) 5.5 10^3/uL (1.5-6.6); NEUTROPHILS % (AUTO) 62.8 %; PLT - PLATELET COUNT 239 10^3/uL (130-450); RED BLOOD COUNT 3.21 10^6/uL (4.20-5.40); RED CELL DISTRIBUTION WIDTH 13.2 % (12.0-15.0); WHITE BLOOD COUNT 8.7 x10^3/uL (4.8-10.8)
[2019-12-27 05:16] LABS: CALCIUM 8.8 mg/dL (8.5-10.3); CREATININE 1.1 mg/dL (0.4-1.0)
[2019-12-27 05:23] LABS: HB2 TOTAL 10.6 g/dL; HEMOGLOBIN A1C 0.37 g/dL; HEMOGLOBIN A1C % 5.3 % (4.6-6.2)
[2019-12-27 05:28] LABS: CHOL/HDL RATIO 3.1 (<4.4); CHOLESTEROL 129 mg/dL; HDL CHOLESTEROL 41 mg/dL; LDL CHOLESTEROL,CALCULATED 60 mg/dL; LDL/HDL RATIO 1.5 (<4.4); VLDL CHOLESTEROL 28 mg/dL
[2019-12-27] MEDS ORDERED: PANTOPRAZOLE 40 MG TABLET PO SCH (07:00)
[2019-12-27] MEDS ORDERED: cefTRIAXone 1 GM in SODIUM CHLORIDE 0.9% MINIBAG 100 ML IV ONE (09:00)
--- NOTE | 2019-12-27 15:44 | Discharge Plan ---
Discharge Plan Problem Reviewed?: Yes Disposition: Home, Self Care Condition: Good Prescriptions: Amox/Clav 875/125 [Augmentin] 1 each PO BIDWM #16 tablet Aspirin 325 mg PO DAILY #30 tablet Diet: Regular Activity Restrictions: Activity as Tolerated Shower Restrictions: No Health Concerns: Stroke/TIA Right facial swelling UTI Plan of Treatment: Continue antibiotics at home Rest for the next 48 hours Continue a full dose aspirin for the next 21 days Care Goals: Prevent a recurrence of this event Prevent ED visits or hospital stays Maintain your independence Assessment: You were admitted to the hospital for right facial swelling, concerning to be a facial droop. You underwent a TIA work up. You were started on antibiotics, which should continue at home. The heart echocardiogram was unchanged from previous and did not appear to have a blood clot, or a hole in your heart. A he ad MRI is from earlier today shows a right frontal lobe stroke. He called me personally to say there was a new stroke, but wrote there may be in the report. 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 In aneurysms smaller than 7 mm, there is a low risk of rupture. 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 These were likely due to a blood clot which formed in your heart years ago. To keep you protected, you should continue on your cholesterol medication and start taking a full dose aspirin for at least the next 21 days, then you can cut back to a baby aspirin at 81 mg. Rest and avoid lots of activity for the next 48 hours. Please see your PCP within the next 1 week as a follow up to this stay, who may recommend a neurology follow up. No Smoking: If you smoke, Please STOP! Call for help. Follow-up with: Claudia Puentes PA-C [Primary Care Provider] -
--- NOTE | 2019-12-27 15:54 | DISCHARGE SUMMARY ---
Discharge Summary Admit Date: 12/26/19 Discharge Date: 12/27/19 Discharging Provider: AGUEDA Frances Primary Care Provider: Claudia Puentes Code Status: Attempt Resuscitation Condition at Discharge: Good Discharge Disposition: 01 Home, Self Care - DIAGNOSES Admission Diagnoses: TIA (transient ischemic attack) Facial cellulitis Hypertension Hyperlipidemia Discharge Diagnoses with Status of Each Condition: Ischemic stroke of frontal lobe-Present on admission, patient was told of this, stable TIA (transient ischemic attack)-Ruled out since brain imaging Memory loss-Chronic, stable Facial cellulitis-Not confirmed since her swelling was not painful, redness would come and go, treated for UTI, which would also help with cellulitis, stable Hypertension-Chronic, stable Hyperlipidemia-Chronic, stable UTI-Urine sample looked positive, cultures are pending, prescribed an antibiotic to continue at home, stable - HPI History of Present Illness: HPI per Dr. Barnard: Patient is an 79 y/o female with previous Hx of TIA in 2011 who was brought to the ED by her after he noticed that she had a right facial droop. This was around 4:00-4:30pm. By the time they arrived the ED, it had resolved. However it was noticed by the ED physician that the lower half of the right side of her face appeared swollen and mildly erythematous. She also reported episodes of confusion at home over the past week during which she seems to forget how to do things she has been doing routinely for many years. She denied dizziness, double-vision, headache, ataxia, dysarthria, dysphagia, chest pain, dyspnea, abdominal pain, nausea, vomiting, fever or chills. She recently underwent an EGD a few days ago for ?small intestinal stricture. Work up in the ED included CT brain w/o contrast, CTA head and neck. There was no sign of brain bleed. A 2mm aneurysm was noted. The swelling on the right side of the patient's face was again noted and thought to be consistent with cellulitis. As a result of her symptoms she was presented for admission for a TIA/CVA work up. - HOSPITAL COURSE Hospital Course: The patient was admitted to the hospital for right facial swelling, concerning to be a facial droop. She underwent a TIA work up. She was started on antibiotics, which should continue at home. The heart echocardiogram was unchanged from previous. A head MRI is from earlier today shows a right frontal lobe stroke. The radiologist called me personally to say there was a new stroke, but wrote, "there may be" in the report. 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 In aneurysms smaller than 7 mm, there is a low risk of rupture. 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 The patient was continued on her cholesterol medication and started on a full dose aspirin for at least the next 21 days, then she can cut back to a baby aspirin at 81 mg. The patient was advised to rest and avoid lots of activity for the next 48 hours. She is to see her PCP within the next 1 week as a follow up to this stay, who may recommend a neurology follow up. - ALLERGIES Allergies/Adverse Reactions: Allergies Allergy/AdvReac Type Severity Reaction Status Date / Time Sulfa (Sulfonamide AdvReac Mild bone ache Verified 12/26/19 17:14 Antibiotics) - MEDICATIONS Home Medications: Ambulatory Orders Medication Instructions Recorded Confirmed Atenolol 25 mg PO DAILY 01/02/15 12/27/19 Pravastatin Sodium 40 mg PO QPM 01/02/15 12/27/19 lisinopriL [Lisinopril] 5 mg PO DAILY 01/02/15 12/27/19 Calcium Carbonate/Vitamin D3 1 each PO DAILY 08/10/17 12/27/19 [Calcium 500-Vit D3 600 Caplet] Cholecalciferol (Vitamin D3) 2,000 unit PO DAILY 08/10/17 12/27/19 [Vitamin D3] Krill/[place]-3/Dha/Epa/Lipids 1 each PO DAILY 08/10/17 12/27/19 [Krill Oil 350 mg Softgel] L. Acidophilus/L. Rhamnosus 1 each PO DAILY 08/10/17 12/27/19 [Probiotic 15 Billion Cell Cap] Ubidecarenone [Co Q-10] 10 mg PO DAILY 08/10/17 12/27/19 Zinc 50 mg PO DAILY 08/10/17 12/27/19 Amox/Clav 875/125 [Augmentin] 1 each PO BIDWM #16 tablet 12/27/19 Aspirin 325 mg PO DAILY #30 tablet 12/27/19 Colestipol HCl 2 g PO BID 12/27/19 12/27/19 Omeprazole 20 mg PO BID 12/27/19 12/27/19 - PHYSICAL EXAM AT DISCHARGE General Appearance: positive: No acute distress, Alert Eyes Bilateral: positive: Normal inspection, PERRL ENT: positive: ENT inspection nml, Other (localized silver dollar sized swelling in the cheek, not painful, slight erythema) Neck: positive: Thyroid nml, No JVD Respiratory: positive: Chest non-tender, No respiratory distress, Breath sounds nml Cardiovascular: positive: Regular rate & rhythm, No gallop, Systolic murmur Peripheral Pulses: positive: 2+ Abdomen: positive: Non-tender, No organomegaly, Nml bowel sounds Back: positive: Nml inspection Skin: positive: Color nml, No rash, Warm, Dry Extremities: positive: Non-tender, Full ROM, Nml appearance Neurologic/Psychiatric: positive: Oriented x3, CN's nml (2-12), Motor nml, Sensation nml, Mood/affect nml Reflexes: Bicep (R): 3+, Bicep (L): 3+, Ankle (R): 3+, Ankle (L): 3+ - LABS Result Diagrams: 12/27/19 04:40 12/27/19 04:40 - TIME SPENT Time Spent in Discharge (Minutes): 50
--- NOTE | 2019-12-27 16:01 | PHARMACY PROGRESS NOTE ---
- Best Possible Medication History Admit Date and Time: 12/26/191905 Processed by: Pharmacy Medication History completed: Yes Patient Interview: Completed Secondary Source(s): Physician records, Pharmacy records, Insurance records As the person ultimately responsible for medication therapy, providers are able to order a medication from an existing home medication list in [facility] via the "Reconcile Routine" prior to Confirmation of that medication by functional support analyst. Such practice is discouraged except when the physician, in their clinical judgment, deems that a medical need exists for a medication without regard to previous use.
--- NOTE | 2019-12-27 17:05 | MRI Report ---
Reason: right facial droop Procedure Date: 12/27/2019 Accession Number: [id number] / [id number] Procedure: MRI - Brain W/O CPT Code: Addended Final Report FULL RESULT: EXAM: MRI BRAIN WITHOUT CONTRAST EXAM DATE: 12/27/2019 02:18 PM. CLINICAL HISTORY: 79-year-old female. Right facial droop. COMPARISON: MRI BRAIN W/O CONTRAST 04/05/2012 10:14 PM HEAD ANGIO 12/26/2019 5:38 PM HEAD W/O STROKE PROTOCOL 12/26/2019 5:38 PM. TECHNIQUE: Multiplanar, multisequence T1-weighted and fluid-sensitive MR sequences of the brain were performed. Sequences optimized for routine evaluation. Other: None. IV Contrast: None. FINDINGS: Brain Volume: Mild diffuse cerebral volume loss with ex vacuo dilatation of the ventricles and sulci. Parenchyma/Dura: There is a punctate focus of high DWI signal within the high right posterior frontal lobe (series 505 image 168) with equivocal associated ADC values. This may represent a small acute/subacute infarct. No MRI evidence of acute/subacute infarct elsewhere. No mass or acute hemorrhage. Moderately extensive, semi-confluent T2/FLAIR hyperintense periventricular, deep, and subcortical white matter lesions within cerebral hemispheres bilaterally and within the bronwyn centrally, further increased since the prior study. Chronic lacunar infarcts within cerebellar hemispheres bilaterally. Ventricles/Cisterns: No hydrocephalus. No abnormal extra-axial fluid collection or hemorrhage. Orbits: Status post bilateral lens replacement surgery. The visualized orbits are otherwise unremarkable. Sella Turcica: The pituitary gland, cavernous sinuses, suprasellar cistern and optic chiasm are unremarkable. IAC: Symmetric and unremarkable. Vasculature: Normal signal flow void is seen in the major arterial structures at the skull base. Sinuses: No acute appearing sinus disease. Bones: No focal pathologic appearing marrow signal changes. Other: None. IMPRESSION: 1. A punctate focus of high DWI signal within the high right posterior frontal lobe (series 505 image 168) with equivocal associated ADC values. This may represent a small acute/subacute infarct. No MRI evidence of acute/subacute infarct elsewhere. 2. No mass or acute hemorrhage. 3. Moderately extensive, semi-confluent T2/FLAIR hyperintense periventricular, deep, and subcortical white matter lesions within cerebral hemispheres bilaterally and within the bronwyn centrally, further increased since the prior study. 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 4. Chronic lacunar infarcts within cerebellar hemispheres bilaterally. RADIA The critical result notification system was initiated by Dr. Manny Ruvalcaba at 04:54 PM on 12/27/2019. ADDENDUM: 12/27/19 17:20 The above critical result findings were discussed with Dr. Jesus by Dr. Manny Ruvalcaba at 05:20 PM on 12/27/2019.
[2019-12-27] MEDS ORDERED: ASPIRIN 325 MG TABLET PO ONE (18:11)
[2019-12-27 18:46] VITALS: BP 152/57
== END 2019-12-27 18:35 | disposition home or self-care (01) ==
LOC: ED 17:11 → MS2 19:06
PROVIDERS: ADMIT Internal Medicine; ATTEND Nurse Practitioner
DX: I63.9 Cerebral infarction, unspecified (principal); I67.1 Cerebral aneurysm, nonruptured; N39.0 Urinary tract infection, site not specified; R22.0 Localized swelling, mass and lump, head; R29.701 NIHSS score 1; I08.0 Rheumatic disorders of both mitral and aortic valves; I10 Essential (primary) hypertension; E78.5 Hyperlipidemia, unspecified; R41.3 Other amnesia; Z86.73 Personal history of transient ischemic attack (TIA), and cerebral infarction without residual deficits; Z79.899 Other long term (current) drug therapy
CPT/HCPCS: 36415; 70496; 70498; 70551; 80048; 80053; 80061; 81001; 83036; 83690; 85025; 85610; 85730; 87086; 93005; 93306; 96365; 96375; 99285; A9270; G0378; Q9967; 70450; 81003; 83721

== ENCOUNTER 2020-10-22 11:28 | Outpatient (CLI) | payer MEDICARE, OTHER ==
--- NOTE | 2020-10-23 11:45 | Mammography Report ---
BILATERAL DIGITAL SCREENING MAMMOGRAM 3D/2D: 10/22/2020 CLINICAL: Family history of breast cancer. Routine screening. Comparison is made to exams dated: 03/30/2017 mammogram, 06/25/2014 mammogram, 01/22/2013 mammogram, mammogram, and 03/04/2010 mammogram - [facility]. The tissue of both breasts is heterogeneously dense. This may lower the sensitivity of mammography. There are benign vascular calcifications in both breasts. No significant masses, calcifications, or other findings are seen in either breast. There has been no significant interval change. IMPRESSION: BENIGN There is no mammographic evidence of malignancy. A 1 year screening mammogram is recommended. This exam was interpreted at Station ID: [id number]. NOTE: For mammograms, a report in lay terms will be sent to the patient. Approximately 15% of breast malignancies will not be visualized mammographically. In the management of a palpable breast mass, a negative mammogram must not discourage biopsy of a clinically suspicious lesion. Electronically Signed By: Trish [email or web address]:10/22/2020 18:15:38 ACR BI-RADS Category 2: Benign Finding(s) 3342F PARENCHYMAL PATTERN: (D) - The breast(s) demonstrate(s) heterogeneously dense fibroglandular clarissa erickson. BI-RADS CATEGORY: (2) - 2 RECOMMENDATION: (ANNUAL) - Recommend routine annual screening mammography. [id number] 1 year screening LATERALITY: (B)
== END 2020-10-22 11:29 | disposition home or self-care (01) ==
LOC: DI.N 11:28
DX: Z12.31 Encounter for screening mammogram for malignant neoplasm of breast (principal); Z80.3 Family history of malignant neoplasm of breast
CPT/HCPCS: 77067

== ENCOUNTER 2020-11-14 10:47 | Outpatient (CLI) | payer MEDICARE, OTHER ==
--- NOTE | 2020-11-14 17:29 | DEXA Report ---
PROCEDURE: Dexa Spine and/or Hip INDICATIONS: POSTMENOPAUSAL TECHNIQUE: Dual energy x-ray absorptiometry (DXA) was performed on a [employer] System. Regions measur ed are the AP Spine, femoral neck, and if needed forearm. COMPARISON: Prior exam in 2013 is not able to be compared secondary to different densitometry metrics .. FINDINGS: Lumbar Spine: Bone Mineral Density 1.372 g/cm/cm,T score 1.6, normal bone density Left Hip: Bone Mineral Density 0.832 g/cm/cm,T score -1.4, mild osteopenia Left Femoral Neck: Bone Mineral Density 0.802 g/cm/cm, T score -1.7, mild to moderate osteopenia (T score greater or equal to -1.0: NORMAL) (T score from -1.1 to -2.4: OSTEOPENIA) (T score less than or equal to -2.5 to: OSTEOPOROSIS) Impression: Osteopenia within the left hip and femoral neck as above. Patients with diagnosis of osteoporosis or osteopenia should have regular bone mineral density assess ment. For those eligible for Medicare, routine testing is allowed once every 2 years. Testing frequ ency can be increased for patients who have rapidly progressing disease or for those who are receivin g medical therapy to restore bone mass. Reviewed by: Elisa Cárdenas MD on 11/14/2020 5:28 PM PST Approved by: Elisa Cárdenas MD on 11/14/2020 5:28 PM PST Station ID: [id number]
== END 2020-11-14 10:48 | disposition home or self-care (01) ==
LOC: DI 10:47
PROVIDERS: ATTEND Physician Assistant Medical
DX: M85.89 Other specified disorders of bone density and structure, multiple sites (principal)

== ENCOUNTER 2021-02-01 00:41 | Outpatient (CLI) | payer MEDICARE, OTHER | END 2021-02-01 00:42 | disposition left against medical advice (07) | LOC: EMS 00:41 | DX: R55 Syncope and collapse (principal) ==

== ENCOUNTER 2021-10-21 10:38 | Emergency (ER) | payer MEDICARE, OTHER ==
[2021-10-21 11:20] VITALS: BP 170/62
--- NOTE | 2021-10-21 12:30 | ED Physician Documentation ---
History of Present Illness - Stated complaint Stated Complaint: SWALLOWING ISSUES - Chief complaint Chief Complaint: General - History obtained from History obtained from: Patient - Additonal information Additional information: This is a zulema 81-year-old lady presents with 2 seemingly unrelated complaints: 1. She woke this morning with a scratchy throat and difficulty swallowing. It is significantly improved. She has rhinorrhea but that has that chronically. No cough. No fevers. 2. 4 nights ago she fell in her bedroom hitting her back and has significant bruising and swelling there but not too much pain unless she walks a certain way. 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 Acidophilus/L. Rhamnosus 1 each PO DAILY 08/10/17 12/27/19 [Probiotic 15 Billion Cell Cap] Ubidecarenone [Co Q-10] 10 mg PO DAILY 08/10/17 12/27/19 Zinc 50 mg PO DAILY 08/10/17 12/27/19 Amox/Clav 875/125 [Augmentin] 1 each PO BIDWM #16 tablet 12/27/19 Aspirin 325 mg PO DAILY #30 tablet 12/27/19 Colestipol HCl 2 g PO BID 12/27/19 12/27/19 Omeprazole 20 mg PO BID 12/27/19 12/27/19 - Allergies Allergies/Adverse Reactions: Allergies Allergy/AdvReac Type Severity Reaction Status Date / Time Sulfa (Sulfonamide AdvReac Mild bone ache Verified 10/21/21 11:12 Antibiotics) - Social History Does the pt smoke?: No Smoking Status: Never smoker Does the pt drink ETOH?: No Does the pt have substance abuse?: No - Immunizations Immunizations are current?: Yes PD ED PE NORMAL - Vitals Vital signs reviewed: Yes - General General: Alert and oriented X 3, No acute distress - HEENT HEENT: Other (Mild edema of the tonsillar pillars and uvula without tonsillar swelling or exudates.) - Neck Neck: No adenopathy - Back Back: Other (Significant bruising over the low back, left greater than right, but no tenderness of the spine, ribs, or pelvis. Normal gait.) - Extremities Extremities: Other (She has bruising on the left anterior forearm without bony tenderness or limited range of motion) - Psych Psych: Normal mood, Normal affect Results - Vitals Vitals: Vital Signs - 24 hr 10/21/21 11:12 Temperature 36.5 C Heart Rate 89 Respiratory 18 Rate Blood Pressure 170/62 H O2 Saturation 100 Oxygen O2 Source Room air PD MEDICAL DECISION MAKING - ED course ED course: She was able to swallow here and felt like her throat was pretty much better. The exam is most consistent with postnasal drip. She has some impressive bruising of her back and less over the left forearm, but no seeming bony tenderness or limited range of motion. Departure - Departure Disposition: 01 Home, Self Care Clinical Impression: Postnasal drip Back contusion Qualifiers: Encounter type: initial encounter Laterality: unspecified laterality Qualified Code(s): S20.229A - Contusion of unspecified back wall of thorax, initial encounter Contusion of left lower arm Qualifiers: Encounter type: initial encounter Qualified Code(s): S50.12XA - Contusion of left forearm, initial encounter Condition: Good Record reviewed to determine appropriate education?: Yes Instructions: ED Contusion Back Comments: Tylenol as needed for pain. Return for new or worsening symptoms or if your symptoms change. Follow-up with your primary care physician as needed and probably reasonable to follow-up with your primary care physician in a week or 2 for blood pressure recheck. It was / here.
== END 2021-10-21 12:50 | disposition home or self-care (01) ==
LOC: ED 10:38
DX: S20.229A Contusion of unspecified back wall of thorax, initial encounter (principal); S50.12XA Contusion of left forearm, initial encounter; W19.XXXA Unspecified fall, initial encounter; Y92.003 Bedroom of unspecified non-institutional (private) residence as the place of occurrence of the external cause; I10 Essential (primary) hypertension; R09.82 Postnasal drip
CPT/HCPCS: 99281; 99282

== ENCOUNTER 2022-01-27 13:36 | Outpatient (CLI) | payer MEDICARE, OTHER ==
--- NOTE | 2022-01-28 08:34 | Mammography Report ---
BILATERAL DIGITAL SCREENING MAMMOGRAM 3D/2D: 01/27/2022 CLINICAL: Family history of breast cancer. Routine screening. Comparison is made to exams dated: 10/22/2020 mammogram, 03/30/2017 mammogram, 06/25/2014 mammogram, mammogram, 08/02/2011 mammogram, and 03/04/2010 mammogram - [facility]. The tissue of both breasts is heterogeneously dense. This may lower the sensitivity of mammography. There are benign vascular calcifications in both breasts. No significant masses, calcifications, or other findings are seen in either breast. There has been no significant interval change. IMPRESSION: BENIGN There is no mammographic evidence of malignancy. A 1 year screening mammogram is recommended. This exam was interpreted at Station ID: [id number]. NOTE: For mammograms, a report in lay terms will be sent to the patient. Approximately 15% of breast malignancies will not be visualized mammographically. In the management of a palpable breast mass, a negative mammogram must not discourage biopsy of a clinically suspicious lesion. Electronically Signed By: Sukh Montgomery M.D. atsal/[email or web address]:01/27/2022 17:09:43 ACR BI-RADS Category 2: Benign Finding(s) 3342F PARENCHYMAL PATTERN: (D) - The breast(s) demonstrate(s) heterogeneously dense fibroglandular clarissa erickson. BI-RADS CATEGORY: (2) - 2 RECOMMENDATION: (ANNUAL) - Recommend routine annual screening mammography. [id number] 1 year screening LATERALITY: (B)
== END 2022-01-27 13:37 | disposition home or self-care (01) ==
LOC: DI.N 13:36
DX: Z12.31 Encounter for screening mammogram for malignant neoplasm of breast (principal); Z80.3 Family history of malignant neoplasm of breast

== ENCOUNTER 2022-02-17 09:37 | Outpatient (CLI) | payer MEDICARE, OTHER ==
--- NOTE | 2022-02-17 16:00 | XRAY Report ---
PROCEDURE: Lumbar Spine 2 View INDICATIONS: CHRONIC LOW BACK PX TECHNIQUE: 3 views of the lumbar spine were acquired. COMPARISON: None. FINDINGS: Bones: 5 [id number] vertebrae are present. Mild levoscoliosis. There is normal bony alignment. No vertebral body compression fractures. No suspicious bony lesions. Degenerative disc disease, s evere at L4-L5 and L5-S1, moderate at L1-L2, L2-L3 and L3-L4. Moderate facet arthropathy at L4-L5 and L5-S1. Soft tissues: Overlying bowel gas pattern is normal. No suspicious soft tissue calcifications. IMPRESSION: 1. Severe degenerative disc disease. 2. Moderate facet arthropathy. 3. Mild levoscoliosis. 4. If there are radiculopathy symptoms, MRI is suggested for further evaluation. Reviewed by: Keisha Jordan MD on 02/17/2022 3:59 PM PDT Approved by: Keisha Jordan MD on 02/17/2022 3:59 PM PDT Station ID: [id number]
== END 2022-02-17 09:38 | disposition home or self-care (01) ==
LOC: DI.N 09:37
PROVIDERS: ATTEND Physician Assistant Medical
DX: M51.36 Other intervertebral disc degeneration, lumbar region (principal); M51.37 Other intervertebral disc degeneration, lumbosacral region; M47.816 Spondylosis without myelopathy or radiculopathy, lumbar region; M47.817 Spondylosis without myelopathy or radiculopathy, lumbosacral region; M41.9 Scoliosis, unspecified

== ENCOUNTER 2022-09-22 10:07 | Outpatient (CLI) | payer MEDICARE, OTHER ==
[2022-09-22 12:16] LABS: BASOPHILS # (AUTO) 0.1 10^3/uL (0.0-0.1); BASOPHILS % (AUTO) 1.1 %; EOSINOPHILS # (AUTO) 0.2 10^3/uL (0.0-0.7); HCT - HEMATOCRIT 38.3 % (37.0-47.0); HGB - HEMOGLOBIN 11.8 g/dL (12.0-16.0); LYMPHOCYTES # (AUTO) 2.2 10^3/uL (1.5-3.5); MEAN CORPUSCULAR HEMOGLOBIN 30.1 pg (27.0-31.0); MEAN CORPUSCULAR HGB CONC 30.8 g/dL (32.0-36.0); MEAN CORPUSCULAR VOLUME 97.7 fL (81.0-99.0); MEAN PLATELET VOLUME 12.2 fL (7.9-10.8); MONOCYTES # (AUTO) 0.5 10^3/uL (0.0-1.0); MONOCYTES % (AUTO) 6.9 %; NEUTROPHILS # (AUTO) 3.7 10^3/uL (1.5-6.6); NEUTROPHILS % (AUTO) 55.7 %; PLT - PLATELET COUNT 202 10^3/uL (130-450); RED BLOOD COUNT 3.92 10^6/uL (4.20-5.40); RED CELL DISTRIBUTION WIDTH 14.9 % (12.0-15.0); WHITE BLOOD COUNT 6.6 x10^3/uL (4.8-10.8)
[2022-09-22 13:18] LABS: % IRON SATURATION 27 % (20-50); IRON 88 ug/dL (28-170); TOTAL IRON BINDING CAPACITY 328 ug/dL (250-450); TRANSFERRIN 234 mg/dL (192-382)
== END 2022-09-22 10:08 | disposition home or self-care (01) ==
LOC: LAB.N 10:07
PROVIDERS: ATTEND Physician Assistant Medical
DX: K62.5 Hemorrhage of anus and rectum (principal)
CPT/HCPCS: 36415; 82728; 83540; 84466; 85025

== ENCOUNTER 2022-10-18 10:05 | Outpatient (CLI) | payer MEDICARE, OTHER ==
[2022-10-18] MEDS ORDERED: iohexoL-300 100 ML VIAL ONE (10:13)
[2022-10-18] MEDS ORDERED: DIATRIZOATE MEGLU/DIATRIZO SOD 30 ML BOTTLE PO ONE (10:13)
[2022-10-18 10:27] LABS: CALCIUM 9.1 mg/dL (8.5-10.3); CREATININE 1.2 mg/dL (0.4-1.0); POTASSIUM 4.3 mmol/L (3.5-5.0)
--- NOTE | 2022-10-18 15:12 | CT Report ---
PROCEDURE: ABDOMEN/PELVIS W INDICATIONS: RIGHT LOWER QUAD ABD MASS CONTRAST: 100ml Omnipaque 300 TECHNIQUE: After the administration of oral and intravenous contrast, 5 mm thick sections acquired from the diap hragms to the symphysis. 5 mm thick coronal and sagittal reformats were acquired. For radiation dos e reduction, the following was used: automated exposure control, adjustment of mA and/or kV accordin g to patient size. COMPARISON: CT abdomen pelvis 06/21/2022. FINDINGS: Image quality: Excellent. Images are denoted as (series #/image #). Visualized lung bases: No pleural effusion. Liver and biliary tree: No suspect focal hepatic lesion. No biliary ductal dilation. Gallbladder: No radiopaque cholelithiasis. Spleen: Unremarkable. Pancreas: Unremarkable. Adrenal glands: Unremarkable. Kidneys and ureters: No hydronephrosis. Gastrointestinal tract: No bowel obstruction. The colon is collapsed from the cecum to the splenic fl exure with equivocal wall thickening versus artifactual appearance of wall thickening related to unde rdistention. Peritoneal cavity: Small amount of nonspecific pelvic free fluid, new since the previous exam. No anya e air. Bladder: Possible mucosal hyperenhancement. Pelvic organs: The uterus is not visualized and is presumed surgically absent. No pelvic mass visuali zed. The fluid-filled structure at the center right pelvis described in the report for the prior CT i s consistent with the patient's cecum, now within the right lower quadrant of the abdomen. Vasculature: No abdominal aortic aneurysm. Lymph nodes: No highly suspicious lymph nodes visualized. Musculoskeletal: Degenerative change of the spine. IMPRESSION: 1. No mass visualized within the right lower quadrant of the abdomen as clinically queried. 2. New small amount of nonspecific pelvic free fluid present, unclear etiology or clinical significan ce. 3. Possible mucosal hyperenhancement of the urinary bladder. Correlation with the patient's symptoms and urinalysis for evidence of urinary tract infection may be helpful. 4. Possible/equivocal wall thickening of the colon from the cecum to the splenic flexure. This could also potentially represent artifactual appearance of wall thickening related to luminal underdistenti on. Correlation for symptoms of an infectious or inflammatory colitis may be helpful. Reviewed by: Bebeto Harrington MD on 10/18/2022 3:11 PM PST Approved by: Bebeto Harrington MD on 10/18/2022 3:11 PM PST Station ID: [id number]
[2022-10-18] MEDS: iohexoL-300 100 ML VIAL IVP ONE (15:41)
[2022-10-18] MEDS: DIATRIZOATE MEGLU/DIATRIZO SOD 30 ML BOTTLE PO ONE (15:41)
== END 2022-10-18 10:06 | disposition home or self-care (01) ==
LOC: LAB 10:05
PROVIDERS: ATTEND Physician Assistant Medical
DX: R19.03 Right lower quadrant abdominal swelling, mass and lump (principal)
CPT/HCPCS: 36415; 74177; 80048; Q9963; Q9967

== ENCOUNTER 2023-03-22 10:01 | Outpatient (CLI) | payer MEDICARE, OTHER ==
[2023-03-22 10:14] LABS: BASOPHILS % (AUTO) 0.6 %; EOSINOPHILS # (AUTO) 0.1 10^3/uL (0.0-0.7); EOSINOPHILS % (AUTO) 1.9 %; HCT - HEMATOCRIT 33.3 % (37.0-47.0); HGB - HEMOGLOBIN 10.4 g/dL (12.0-16.0); LYMPHOCYTES # (AUTO) 2.2 10^3/uL (1.5-3.5); LYMPHOCYTES % (AUTO) 35.6 %; MEAN CORPUSCULAR HEMOGLOBIN 31.2 pg (27.0-31.0); MEAN CORPUSCULAR HGB CONC 31.2 g/dL (32.0-36.0); MEAN PLATELET VOLUME 10.1 fL (7.9-10.8); MONOCYTES # (AUTO) 0.7 10^3/uL (0.0-1.0); MONOCYTES % (AUTO) 10.7 %; NEUTROPHILS # (AUTO) 3.2 10^3/uL (1.5-6.6); NEUTROPHILS % (AUTO) 50.9 %; PLT - PLATELET COUNT 168 10^3/uL (130-450); RED BLOOD COUNT 3.33 10^6/uL (4.20-5.40); RED CELL DISTRIBUTION WIDTH 13.9 % (12.0-15.0); WHITE BLOOD COUNT 6.3 x10^3/uL (4.8-10.8)
[2023-03-22 10:31] LABS: ALBUMIN 3.5 g/dL (3.2-5.5); ALBUMIN/GLOBULIN RATIO 1.1 (1.0-2.2); ALKALINE PHOSPHATASE 101 IU/L (42-121); ALT ALANINE AMINOTRANSFERASE 17 IU/L (10-60); AST ASPARTATE AMINOTRANSFERASE 24 IU/L (10-42); BILIRUBIN,TOTAL 0.6 mg/dL (0.2-1.0); BUN - BLOOD UREA NITROGEN 22 mg/dL (6-20); CALCIUM 8.9 mg/dL (8.5-10.3); CARBON DIOXIDE - CO2 27 mmol/L (21-32); CHLORIDE 107 mmol/L (101-111); CHOL/HDL RATIO 2.3 (<4.4); CHOLESTEROL 171 mg/dL; CREATININE 1.2 mg/dL (0.4-1.0); GFR - MDRD 43 (>89); GLUCOSE 101 mg/dL (70-100); HDL CHOLESTEROL 75 mg/dL; LDL CHOLESTEROL,CALCULATED 55 mg/dL; LDL/HDL RATIO 0.7 (<4.4); POTASSIUM 4.5 mmol/L (3.5-5.0); SODIUM 141 mmol/L (135-145); TOTAL PROTEIN 6.7 g/dL (6.7-8.2); TRIGLYCERIDES 204 mg/dL; VLDL CHOLESTEROL 41 mg/dL
== END 2023-03-22 10:02 | disposition home or self-care (01) ==
LOC: LAB 10:01
PROVIDERS: ATTEND Physician Assistant Medical
DX: E78.1 Pure hyperglyceridemia (principal); K62.5 Hemorrhage of anus and rectum
CPT/HCPCS: 36415; 80053; 80061; 83721; 85025

== ENCOUNTER 2023-03-30 08:44 | Outpatient (CLI) | payer MEDICARE, OTHER ==
--- NOTE | 2023-03-30 11:37 | Ultrasound Report ---
PROCEDURE: Duplex Ext Veins Left INDICATIONS: LEG EDEMA TECHNIQUE: Real-time imaging, as well as color and pulse Doppler interrogation, were performed of the lower extr emity deep veins from the inguinal ligament to the popliteal fossa. COMPARISON: None. FINDINGS: The deep veins are normally compressible, and free of intraluminal thrombus. Color and pu lse Doppler demonstrate normal phasic intraluminal flow. There is normal augmentation response to di stal compression maneuver. IMPRESSION: Left lower extremity without evidence for deep venous thrombosis. Reviewed by: Sukh Montgomery MD on 03/30/2023 11:36 AM PDT Approved by: Sukh Montgomery MD on 03/30/2023 11:36 AM PDT Station ID: [id number]
== END 2023-03-30 08:45 | disposition home or self-care (01) ==
LOC: DI 08:44
PROVIDERS: ATTEND Physician Assistant Medical
DX: R60.0 Localized edema (principal)

== ENCOUNTER 2023-04-07 14:14 | Outpatient (CLI) | payer MEDICARE, OTHER ==
--- NOTE | 2023-04-08 09:09 | Mammography Report ---
BILATERAL DIGITAL SCREENING MAMMOGRAM 3D/2D: 04/07/2023 CLINICAL: Routine screening. Comparison is made to exams dated: 01/27/2022 mammogram, 10/22/2020 mammogram, 03/30/2017 mammogram, mammogram, and 01/22/2013 mammogram - [facility]. Both breasts are heterogeneously dense, which may obscure small masses (category c / 51-75% glandular tissue). There are benign vascular calcifications in both breasts. No significant masses, calcifications, or other findings are seen in either breast. There has been no significant interval change. IMPRESSION: BENIGN There is no mammographic evidence of malignancy. A 1 year screening mammogram is recommended. Based on the Tyrer Cuzick model (a risk assessment model) the patients lifetime risk is 0.6% and her 10 year risk is 0.0%. According to the ACR, ACS, and NCCN guidelines, an annual breast MRI exam j carlos g with mammogram is recommended if the patients lifetime risk is 20% or greater. This exam was interpreted at Station ID: [id number]. NOTE: For mammograms, a report in lay terms will be sent to the patient. Approximately 15% of breast malignancies will not be visualized mammographically. In the management of a palpable breast mass, a negative mammogram must not discourage biopsy of a clinically suspicious lesion. Electronically Signed By: Liam moore/[email or web address]:04/07/2023 14:46:12 letter sent: No_Letter ACR BI-RADS Category 2: Benign Finding(s) 3342F PARENCHYMAL PATTERN: (D) - The breast(s) demonstrate(s) heterogeneously dense fibroglandular clarissa erickson. BI-RADS CATEGORY: (2) - 2 Mammogram [id number] 1 year screening LATERALITY: (B)
== END 2023-04-07 14:15 | disposition home or self-care (01) ==
LOC: DI 14:14
DX: Z12.31 Encounter for screening mammogram for malignant neoplasm of breast (principal)

== ENCOUNTER 2023-07-01 10:48 | Outpatient (CLI) | payer MEDICARE, OTHER ==
[2023-07-01 11:00] LABS: BASOPHILS # (AUTO) 0.1 10^3/uL (0.0-0.1); BASOPHILS % (AUTO) 0.6 %; EOSINOPHILS # (AUTO) 0.1 10^3/uL (0.0-0.7); EOSINOPHILS % (AUTO) 1.4 %; HCT - HEMATOCRIT 35.2 % (37.0-47.0); HGB - HEMOGLOBIN 11.3 g/dL (12.0-16.0); LYMPHOCYTES # (AUTO) 2.1 10^3/uL (1.5-3.5); LYMPHOCYTES % (AUTO) 24.5 %; MEAN CORPUSCULAR HGB CONC 32.1 g/dL (32.0-36.0); MEAN CORPUSCULAR VOLUME 102.9 fL (81.0-99.0); MEAN PLATELET VOLUME 10.5 fL (7.9-10.8); MONOCYTES # (AUTO) 0.6 10^3/uL (0.0-1.0); MONOCYTES % (AUTO) 6.6 %; NEUTROPHILS # (AUTO) 5.7 10^3/uL (1.5-6.6); NEUTROPHILS % (AUTO) 66.7 %; PLT - PLATELET COUNT 191 10^3/uL (130-450); RED BLOOD COUNT 3.42 10^6/uL (4.20-5.40); WHITE BLOOD COUNT 8.5 x10^3/uL (4.8-10.8)
[2023-07-01 11:28] LABS: % IRON SATURATION 63 % (20-50); IRON 160 ug/dL (50-212); TOTAL IRON BINDING CAPACITY 253 ug/dL (250-450); TRANSFERRIN 181 mg/dL (203-362)
[2023-07-01 11:52] LABS: FERRITIN 57.2 ng/mL (11.0-306.8)
== END 2023-07-01 10:49 | disposition home or self-care (01) ==
LOC: LAB 10:48
PROVIDERS: ATTEND Physician Assistant Medical
DX: D64.9 Anemia, unspecified (principal)
CPT/HCPCS: 36415; 82607; 82728; 82746; 83540; 84466; 85025

== ENCOUNTER 2023-11-23 09:28 | Outpatient (CLI) | payer MEDICARE, OTHER ==
[2023-11-23 09:52] LABS: BASOPHILS % (AUTO) 0.4 %; EOSINOPHILS # (AUTO) 0.1 10^3/uL (0.0-0.7); EOSINOPHILS % (AUTO) 0.5 %; HCT - HEMATOCRIT 35.8 % (37.0-47.0); HGB - HEMOGLOBIN 11.3 g/dL (12.0-16.0); LYMPHOCYTES # (AUTO) 1.5 10^3/uL (1.5-3.5); LYMPHOCYTES % (AUTO) 15.5 %; MEAN CORPUSCULAR HEMOGLOBIN 32.7 pg (27.0-31.0); MEAN CORPUSCULAR HGB CONC 31.6 g/dL (32.0-36.0); MEAN CORPUSCULAR VOLUME 103.5 fL (81.0-99.0); MEAN PLATELET VOLUME 9.3 fL (7.9-10.8); MONOCYTES # (AUTO) 1.2 10^3/uL (0.0-1.0); MONOCYTES % (AUTO) 12.6 %; NEUTROPHILS # (AUTO) 6.7 10^3/uL (1.5-6.6); NEUTROPHILS % (AUTO) 70.5 %; PLT - PLATELET COUNT 190 10^3/uL (130-450); RED BLOOD COUNT 3.46 10^6/uL (4.20-5.40); RED CELL DISTRIBUTION WIDTH 12.7 % (12.0-15.0); WHITE BLOOD COUNT 9.5 x10^3/uL (4.8-10.8)
[2023-11-23 10:07] LABS: ALBUMIN 3.3 g/dL (3.2-5.5); ALBUMIN/GLOBULIN RATIO 0.9 (1.0-2.2); ALKALINE PHOSPHATASE 166 IU/L (42-121); ALT ALANINE AMINOTRANSFERASE 10 IU/L (10-60); AST ASPARTATE AMINOTRANSFERASE 13 IU/L (10-42); BILIRUBIN,TOTAL 0.5 mg/dL (0.2-1.0); BUN - BLOOD UREA NITROGEN 20 mg/dL (6-20); CARBON DIOXIDE - CO2 28 mmol/L (21-32); CHLORIDE 104 mmol/L (101-111); CHOL/HDL RATIO 2.5 (<4.4); CHOLESTEROL 162 mg/dL; CREATININE 1.2 mg/dL (0.6-1.3); GFR - MDRD 43 (>89); GLUCOSE 112 mg/dL (74-104); HDL CHOLESTEROL 66 mg/dL; LDL CHOLESTEROL,CALCULATED 72 mg/dL; LDL/HDL RATIO 1.1 (<4.4); SODIUM 138 mmol/L (135-145); TOTAL PROTEIN 6.8 g/dL (6.4-8.9); TRIGLYCERIDES 118 mg/dL (48-352); VLDL CHOLESTEROL 24 mg/dL
[2023-11-23 10:28] LABS: FERRITIN 151.3 ng/mL (11.0-306.8)
== END 2023-11-23 09:29 | disposition home or self-care (01) ==
LOC: LAB 09:28
PROVIDERS: ATTEND Physician Assistant Medical
DX: E78.1 Pure hyperglyceridemia (principal); D64.9 Anemia, unspecified
CPT/HCPCS: 36415; 80053; 80061; 82728; 83721; 85025

== ENCOUNTER 2023-11-26 04:44 | Emergency (ER) | payer MEDICARE, OTHER ==
[2023-11-26 05:00] VITALS: BP 145/61; O2SAT 97
[2023-11-26 05:25] LABS: RAPID STREP SCREEN Negative (Negative)
[2023-11-26] MEDS ORDERED: diphenhydrAMINE 25 MG CAPSULE PO STA (05:56)
--- NOTE | 2023-11-26 07:08 | ED Physician Documentation ---
PD HPI HEENT - Stated complaint Stated Complaint: TROUBLE SWALLOWING - Chief complaint Chief Complaint: Heent - History obtained from History obtained from: Patient - Additional information Additional information: HPI from patient. Patient's chief, and only, complaint is recurrent pooling of secretions in back of her throat throughout the night making her swallow repeatedly which, in turn, has kept her up all night. Her description is vague but sounds s/o post-nasal drip. She denies any pain. She denies fever, cough, dyspnea. Denies sinus congestion, sinus pain, sore throat, rhinorrhea. 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 Acidophilus/L. Rhamnosus 1 each PO DAILY 08/10/17 11/26/23 [Probiotic 15 Billion Cell Cap] Ubidecarenone [Co Q-10] 10 mg PO DAILY 08/10/17 11/26/23 Zinc 50 mg PO DAILY 08/10/17 11/26/23 Aspirin 325 mg PO DAILY #30 tablet 12/27/19 11/26/23 Colestipol HCl 2 g PO BID 12/27/19 11/26/23 Omeprazole 20 mg PO BID 12/27/19 11/26/23 Azelastine HCl 2 sprays NS BID #30 ml 11/26/23 - Allergies Allergies/Adverse Reactions: Allergies Allergy/AdvReac Type Severity Reaction Status Date / Time Sulfa (Sulfonamide AdvReac Mild bone ache Verified 11/26/23 04:53 Antibiotics) - Social History Does the pt smoke?: No Smoking Status: Never smoker Does the pt drink ETOH?: No Does the pt have substance abuse?: No - Immunizations Immunizations are current?: Yes - POLST Patient has POLST: No PD ED PE NORMAL - Vitals Vital signs reviewed: Yes - General General: Alert and oriented X 3, No acute distress, Well developed/nourished - HEENT HEENT: Moist mucous membranes, Pharynx benign (very limited visualization of posterior o/p (at best, Mallampati III) but no visualization of erythema, edema) - Neck Neck: Supple, no meningeal sign Results - Vitals Vitals: Vital Signs - 24 hr 11/26/23 04:48 Temperature 36.4 C L Heart Rate 96 Respiratory 16 Rate Blood Pressure 145/61 H O2 Saturation 97 Oxygen O2 Source Room air - Labs Labs: Laboratory Tests 11/26/23 04:55 Group A Strep Rapid Negative PD Medical Decision Making - ED course Complexity details: considered differential, d/w patient ED course: Rapid strep negative (throat swab). Visualization of posterior o/p is very limited due to gag reflex; even with tongue depressor, structures visualized are barely class III Mallampati. What is visualized appears normal (no erythema, no asymmetry, no edema). Will treat as rhinitis with post-nasal drip. She is given 25mg PO benadryl to help dry up secretions and I e-prescribed Azelastine. Instructed to seek follow up with PCP in 2-3 days if symptoms persist. Departure - Departure Disposition: 01 Home, Self Care Clinical Impression: Post-nasal drip Condition: Good Instructions: ED Allergy Nasal Prescriptions: Azelastine HCl 2 sprays NS BID #30 ml Comments: The cause of your symptoms is not apparent at this time. You were given a dose of diphenhydramine (Benadryl) in the emergency department, as this can help dry up oral/nasal secretions. I have electronically submitted a prescription to the [facility] in [place] for an anti-histamine nasal spray which you can use if the symptoms continue. If you are still having symptoms on Tuesday, you should contact your primary care provider to arrange for next available appointment for reevaluation. Forms: PCP List Discharge Date/Time: 11/26/23 06:12
== END 2023-11-26 06:12 | disposition home or self-care (01) ==
LOC: ED 04:44
DX: R09.82 Postnasal drip (principal); I10 Essential (primary) hypertension
CPT/HCPCS: 87070; 87430; 99283; A9270

== ENCOUNTER 2024-02-11 22:02 | Emergency (ER) | payer MEDICARE, OTHER ==
[2024-02-11 22:44] LABS: BASOPHILS % (AUTO) 0.3 %; EOSINOPHILS % (AUTO) 0.1 %; HCT - HEMATOCRIT 38.8 % (37.0-47.0); HGB - HEMOGLOBIN 12.1 g/dL (12.0-16.0); LYMPHOCYTES # (AUTO) 0.9 10^3/uL (1.5-3.5); LYMPHOCYTES % (AUTO) 6.4 %; MEAN CORPUSCULAR HEMOGLOBIN 31.5 pg (27.0-31.0); MEAN CORPUSCULAR HGB CONC 31.2 g/dL (32.0-36.0); MEAN PLATELET VOLUME 9.5 fL (7.9-10.8); MONOCYTES # (AUTO) 0.2 10^3/uL (0.0-1.0); MONOCYTES % (AUTO) 1.4 %; NEUTROPHILS # (AUTO) 13.4 10^3/uL (1.5-6.6); NEUTROPHILS % (AUTO) 91.5 %; PLT - PLATELET COUNT 207 10^3/uL (130-450); RED BLOOD COUNT 3.84 10^6/uL (4.20-5.40); RED CELL DISTRIBUTION WIDTH 12.2 % (12.0-15.0); WHITE BLOOD COUNT 14.6 x10^3/uL (4.8-10.8)
[2024-02-11 22:59] LABS: ALBUMIN/GLOBULIN RATIO 1.4 (1.0-2.2); BILIRUBIN,TOTAL 0.4 mg/dL (0.2-1.0); CALCIUM 9.7 mg/dL (8.5-10.3); CREATININE 1.8 mg/dL (0.6-1.3); POTASSIUM 4.4 mmol/L (3.5-4.5); TOTAL PROTEIN 6.8 g/dL (6.4-8.9)
--- NOTE | 2024-02-11 23:50 | ED Physician Documentation ---
PD HPI GI BLEED - Stated complaint Stated Complaint: BLEED - Chief complaint Chief Complaint: Abd Pain - History obtained from History obtained from: Patient - Additional information Additional information: HPI from patient. Patient c/o pain across lower abdomen, gradual onset since approximately 19:00 tonight while at home on toilet having BM. She noticed BRBPR with this BM but no clots. The pain has been constant but waxing and waning in intensity, exacerbated with palpation and, to a lesser extent, with movement. Denies fever, denies similar symptoms. No past abdominal surgical history. Does not take blood-thinning medications. Review of Systems Constitutional: denies: Fever, Chills, Sweats GI: reports: Abdominal Pain, Bloody / black stool. denies: Nausea, Vomiting, Constipation, Diarrhea, Hematemesis PD PAST MEDICAL HISTORY - Past Medical History Cardiovascular: Hypertension, High cholesterol Respiratory: None Neuro: TIA Endocrine/Autoimmune: None GI: GERD : None Musculoskeletal: Osteoarthritis Derm: Eczema - Past Surgical History Past Surgical History: Yes /[employer]: Hysterectomy HEENT: Tonsil/Adenoidectomy - Present Medications Home Medications: Ambulatory Orders Medication Instructions Recorded Confirmed Atenolol 25 mg PO DAILY 01/02/15 11/26/23 Pravastatin Sodium 40 mg PO QPM 01/02/15 11/26/23 lisinopriL [Lisinopril] 5 mg PO DAILY 01/02/15 11/26/23 Calcium Carbonate/Vitamin D3 1 each PO DAILY 08/10/17 11/26/23 [Calcium 500-Vit D3 600 Caplet] Cholecalciferol (Vitamin D3) 2,000 unit PO DAILY 08/10/17 11/26/23 [Vitamin D3] Krill/Stuart-3/Dha/Epa/Lipids 1 each PO DAILY 08/10/17 11/26/23 [Krill Oil 350 mg Softgel] L. Acidophilus/L. Rhamnosus 1 each PO DAILY 08/10/17 11/26/23 [Probiotic 15 Billion Cell Cap] Ubidecarenone [Co Q-10] 10 mg PO DAILY 08/10/17 11/26/23 Zinc 50 mg PO DAILY 08/10/17 11/26/23 Aspirin 325 mg PO DAILY #30 tablet 12/27/19 11/26/23 Colestipol HCl 2 g PO BID 12/27/19 11/26/23 Omeprazole 20 mg PO BID 12/27/19 11/26/23 Azelastine HCl 2 sprays NS BID #30 ml 11/26/23 Amox/Clav 500/125 [Augmentin 1 tablet PO Q12H #19 tablet 02/12/24 500/125] Ondansetron Odt [Zofran Odt] 4 mg TL Q6H PRN #14 tablet 02/12/24 oxyCODONE [Roxicodone] 5 mg PO Q4-6H PRN #14 tablet 02/12/24 - Allergies Allergies/Adverse Reactions: Allergies Allergy/AdvReac Type Severity Reaction Status Date / Time Sulfa (Sulfonamide AdvReac Mild bone ache Verified 02/11/24 22:53 Antibiotics) - Social History Does the pt smoke?: No Smoking Status: Never smoker Does the pt drink ETOH?: No Does the pt have substance abuse?: No - Immunizations Immunizations are current?: Yes - POLST Patient has POLST: No PD ED PE NORMAL - Vitals Vital signs reviewed: Yes - General General: Alert and oriented X 3, No acute distress, Well developed/nourished - Neck Neck: Supple, no meningeal sign - Cardiac Cardiac: RRR, No murmur - Respiratory Respiratory: No respiratory distress, Clear bilaterally - Abdomen Abdomen: Soft, Non distended, Other (mild TTP across lower abdomen without r ebound, guarding) - Back Back: No CVA TTP - Derm Derm: Normal color, Warm and dry Results - Vitals Vitals: Vital Signs - 24 hr 02/11/24 02/11/24 02/12/24 22:13 23:30 01:51 Temperature 36.5 C 36.5 C Heart Rate 79 79 73 Respiratory 14 16 18 Rate Blood Pressure 122/49 L 145/83 H 118/82 H O2 Saturation 99 99 100 Oxygen O2 Source Room air - Labs Labs: Laboratory Tests 02/11/24 02/11/24 22:39 22:39 WBC 14.6 H RBC 3.84 L Hgb 12.1 Hct 38.8 MCV 101.0 H MCH 31.5 H MCHC 31.2 L RDW 12.2 Plt Count 207 MPV 9.5 Neut # (Auto) 13.4 H Lymph # (Auto) 0.9 L King # (Auto) 0.2 Eos # (Auto) 0.0 Baso # (Auto) 0.0 Absolute Nucleated RBC 0.00 Nucleated RBC % 0.0 Sodium 136 Potassium 4.4 Chloride 106 Carbon Dioxide 22 Anion Gap 8.0 BUN 41 H Creatinine 1.8 H Estimated GFR (MDRD) 27 L Glucose 165 H Calcium 9.7 Total Bilirubin 0.4 AST 20 ALT 13 Alkaline Phosphatase 108 Total Protein 6.8 Albumin 4.0 Globulin 2.8 Albumin/Globulin Ratio 1.4 Lipase 43 - Rads (name of study) CT A/P Relevant Findings:: Prelim report reviewed, See rad report PD Medical Decision Making - ED course Complexity details: reviewed results, re-evaluated patient, considered differential, d/w patient, d/w family ED course: Mild leukocytosis noted (wbc 14.6), normal h/h. Elevated bun/creatinine (41/1.8), above her baseline renal function and GFR below 30 prohibits IV contrast and thus CT A/P performed w/o contrast. This study has findings s/o sigmoid colitis, possibly due to diverticulitis. This diagnosis (colitis, diverticulitis) would explain her abdominal pain as well as BRBPR. She is given 4mg IVP morphine sulfate and 4mg IV zofran, reports excellent symptom relief with these measures. She is also given 875 mg PO augmentin for possible diverticulitis, and e-prescribed augmentin, zofran, and percocet. Given take-ho me packs of zofran and percocet, as well. During ED stay patient twice used bedside commode but only few drops of BRBPR were produced. Results, diagnosis, and expected course of illness d/w patient. Return precautions reviewed. Advised to contact PCP on Tuesday to arrange for next available appointment for follow up/reevaluation. Departure - Departure Disposition: Home, Self Care Clinical Impression: Colitis Condition: Good Instructions: ED Diverticulitis, ED Hematochezia Stable Prescriptions: Amox/Clav 500/125 [Augmentin 500/125] 1 tablet PO Q12H #19 tablet oxyCODONE [Roxicodone] 5 mg PO Q4-6H PRN #14 tablet PRN Reason: Pain >8 Ondansetron Odt [Zofran Odt] 4 mg TL Q6H PRN #14 tablet PRN Reason: Nausea / Vomiting Comments: Your white blood cell count was mildly elevated. This is likely due to the inflammation in your colon noted on the CT scan of your abdomen and pelvis. Your red blood cell levels are within a normal range at this time. Your kidney function tests (BUN, creatinine) were abnormally elevated; in comparing these results to previous such tests in the [facility] records I have available, your kidney function tests are noticeably worse than usual but not alarmingly so. When you follow-up with your primary care provider, it is important that you mention the abnormal kidney function tests; they might need to do repeat and/or further testing. Regarding the cause of your symptoms, the CT scan does show inflammatory changes of your colon, consistent with colitis. Colitis is a general term applied to inflammation of the large intestine (colon). There are number of different causes of colitis such as diverticulitis. Because bacteria can be involved in colitis, you were given the first dose of an antibiotic (Augmentin) in the emergency department, and I have electronically submitted a prescription for a 10-day course of this antibiotic to the [facility] pharmacy in [place]. I have also submitted prescriptions for oxycodone (narcotic/opiate pain medication) and ondansetron (antinausea medication). Contact your primary care provider to arrange for a follow-up appointment; ideally, you should be reevaluated in the next 3 to 4 days. I am prescribing a short course of narcotic pain medication for you. These are potentially dangerous and addictive medications that should be used carefully. These medications may constipate you. Take an qtda-sxn-izspmes stool softener (docusate) twice daily with plenty of water while taking these medications. If you go 24 hours without a bowel movement, take [id number] miralax, per package instructions. Do not drink or drive while taking these medications. If you received narcotic or sedating medications while in the emergency department, do not drive for 24 hours. Store this medication in a safe, secure place and out of reach of children. It is a violation of federal law to give or sell this medication to another person or to use in a manner other than prescribed. The ED will not refill narcotic prescriptions, including prescriptions lost or stolen. To dispose of unwanted medications: 1. [facility] [address] [place] has a medication drop box. They accept prescription medications (in pill form) Tuesday through Tuesday 9:00 a.m. to 5:00 p.m. 2. The [facility] [employer] accepts prescription medications (in pill form only) for disposal year round. Call for more information. 3. Contact the [facility] for the next [facility] sponsored prescription drug collection event. , [phone], or [phone]; Discharge Date/Time: 02/12/24 01:51
[2024-02-12] MEDS: MORPHINE 2 MG/ML CARPUJECT IVP STA (01:00)
[2024-02-12] MEDS: ONDANSETRON 4 MG/2 ML VIAL IVP STA (01:00)
--- NOTE | 2024-02-12 01:01 | CT Report ---
PROCEDURE: Abdomen/Pelvis WO INDICATIONS: abdominal pain, BRBPR TECHNIQUE: A CT scan of the abdomen and pelvis was performed without the use of intravenous contrast. Images we re recorded and evaluated at appropriate window settings. Reformats: coronal and sagittal. For radiat ion dose reduction, the following was used: automated exposure control, adjustment of mA and/or kV ac cording to patient size. COMPARISON: 10/18/2022 abdomen/pelvis CT. FINDINGS: Image quality: Quality of visualization is diminished by absence of both oral and intravenous contras t.. Lower chest: Unremarkable. Liver: No contour-deforming mass. Gallbladder and biliary tree: Spleen: No splenomegaly. Pancreas: No pancreatic ductal dilation. Adrenals: No adrenal nodule. Kidneys and ureters: No hydronephrosis. No renal cystic lesion which requires follow up. No solid mas s. Stomach, bowel and peritoneum: No bowel distension. No pathologic free fluid. Lymph nodes: No central or retroperitoneal adenopathy. Vessels: No infrarenal aortic aneurysm. PELVIS Reproductive organs: Possible prior hysterectomy. Bladder: No wall thickness, accounting for underdistention. Adjacent to the bladder there is edema wi thin the lower peritoneal structures, adjacent to the sigmoid colon positioned immediately above the bladder dome. Edema also tracks into the perirectal fatty soft tissues. The appearance is suggestive of adjacent colonic inflammation such as diverticulitis. Pelvic lymph nodes: No pelvic adenopathy by size criteria. Bones: No aggressive osseous abnormality. Other: No significant ventral or inguinal hernia. IMPRESSION: No hydronephrosis or obstructing renal stone. Note is made of edema within the perirectal and pericolonic fatty soft tissues of the lower third of the pelvis, adjacent to the bladder margins also. The appearance is suggestive of colonic inflammatio n presumed to be secondary to diverticulitis. An abscess is not seen. As noted there is reduced quali ty of visualization due to reduced renal function and absence of intravenous contrast for this study. No free air is seen throughout the peritoneal space. Reviewed by: Manjnider Brandon MD on 02/12/2024 1:00 AM PDT Approved by: Manjinder Brandon MD on 02/12/2024 1:00 AM PDT Station ID: [id number]
[2024-02-12] MEDS: ONDANSETRON ODT 4 MG Prepack 2 TL PRN (01:41)
[2024-02-12] MEDS: AMOX/CLAV 500 MG/125 MG TABLET PO STA (01:41)
[2024-02-12] MEDS: oxyCODONE/ACET 5/325 Prepack 4 PO STA (01:41)
[2024-02-12 01:59] VITALS: BP 118/82; O2SAT 100
== END 2024-02-12 01:51 | disposition home or self-care (01) ==
LOC: ED 22:02
DX: K52.9 Noninfective gastroenteritis and colitis, unspecified (principal); D72.829 Elevated white blood cell count, unspecified; I10 Essential (primary) hypertension; E78.00 Pure hypercholesterolemia, unspecified; Z79.899 Other long term (current) drug therapy; Z79.82 Long term (current) use of aspirin
CPT/HCPCS: 36415; 74176; 80053; 83690; 85025; 96374; 99284; A9270

== ENCOUNTER 2024-03-16 11:43 | Emergency (ER) | payer MEDICARE, OTHER ==
[2024-03-16 11:55] VITALS: BP 150/45; O2SAT 99
[2024-03-16 12:09] LABS: BASOPHILS # (AUTO) 0.1 10^3/uL (0.0-0.1); BASOPHILS % (AUTO) 0.9 %; EOSINOPHILS # (AUTO) 0.1 10^3/uL (0.0-0.7); HCT - HEMATOCRIT 33.4 % (37.0-47.0); HGB - HEMOGLOBIN 10.4 g/dL (12.0-16.0); LYMPHOCYTES # (AUTO) 2.2 10^3/uL (1.5-3.5); LYMPHOCYTES % (AUTO) 33.2 %; MEAN CORPUSCULAR HEMOGLOBIN 31.8 pg (27.0-31.0); MEAN CORPUSCULAR HGB CONC 31.1 g/dL (32.0-36.0); MEAN CORPUSCULAR VOLUME 102.1 fL (81.0-99.0); MEAN PLATELET VOLUME 9.9 fL (7.9-10.8); MONOCYTES # (AUTO) 0.7 10^3/uL (0.0-1.0); MONOCYTES % (AUTO) 10.2 %; NEUTROPHILS # (AUTO) 3.5 10^3/uL (1.5-6.6); NEUTROPHILS % (AUTO) 53.4 %; PLT - PLATELET COUNT 169 10^3/uL (130-450); RED BLOOD COUNT 3.27 10^6/uL (4.20-5.40); RED CELL DISTRIBUTION WIDTH 12.4 % (12.0-15.0); WHITE BLOOD COUNT 6.6 x10^3/uL (4.8-10.8)
[2024-03-16 12:10] LABS: BILIRUBIN,URINE NEGATIVE (NEGATIVE); GLUCOSE, URINE (UA) NEGATIVE (NEGATIVE); KETONES,URINE (UA) NEGATIVE (NEGATIVE); LEUKOCYTE ESTERASE, URINE TRACE (NEGATIVE); NITRITE,URINE NEGATIVE (NEGATIVE); OCCULT BLOOD,URINE NEGATIVE (NEGATIVE); PROTEIN,URINE NEGATIVE (NEGATIVE); UROBILINOGEN,URINE 0.2 (NORMAL) E.U./dL (NORMAL)
[2024-03-16 12:11] LABS: CLARITY,URINE CLEAR (CLEAR)
[2024-03-16 12:16] LABS: BACTERIA,URINE Few /HPF (None Seen); MUCUS,URINE Few Strands; RBC,URINE 0-5 /HPF (0-5); SQUAMOUS EPITHELIAL CELL,UR MOD Squamous (<= Few); WBC,URINE 0-3 /HPF (0-5)
[2024-03-16 12:22] LABS: ALBUMIN 4.1 g/dL (3.2-5.5); ALBUMIN/GLOBULIN RATIO 1.5 (1.0-2.2); BILIRUBIN,TOTAL 0.4 mg/dL (0.2-1.0); CALCIUM 9.6 mg/dL (8.5-10.3); CREATININE 1.6 mg/dL (0.6-1.3); POTASSIUM 4.5 mmol/L (3.5-4.5); TOTAL PROTEIN 6.9 g/dL (6.4-8.9)
== END 2024-03-16 14:34 | disposition left against medical advice (07) ==
LOC: ED 11:43
DX: R10.9 Unspecified abdominal pain (principal); Z53.20 Procedure and treatment not carried out because of patient's decision for unspecified reasons
CPT/HCPCS: 36415; 80053; 81001; 81003; 83690; 85025; 87086

== ENCOUNTER 2024-04-21 10:16 | Outpatient (CLI) | payer MEDICARE, OTHER ==
[2024-04-21 10:47] LABS: BASOPHILS % (AUTO) 0.6 %; EOSINOPHILS # (AUTO) 0.1 10^3/uL (0.0-0.7); EOSINOPHILS % (AUTO) 1.9 %; HCT - HEMATOCRIT 35.3 % (37.0-47.0); HGB - HEMOGLOBIN 11.1 g/dL (12.0-16.0); LYMPHOCYTES # (AUTO) 2.4 10^3/uL (1.5-3.5); LYMPHOCYTES % (AUTO) 33.7 %; MEAN CORPUSCULAR HEMOGLOBIN 32.4 pg (27.0-31.0); MEAN CORPUSCULAR HGB CONC 31.4 g/dL (32.0-36.0); MEAN CORPUSCULAR VOLUME 102.9 fL (81.0-99.0); MEAN PLATELET VOLUME 9.3 fL (7.9-10.8); MONOCYTES # (AUTO) 0.6 10^3/uL (0.0-1.0); MONOCYTES % (AUTO) 8.2 %; NEUTROPHILS % (AUTO) 55.3 %; PLT - PLATELET COUNT 155 10^3/uL (130-450); RED BLOOD COUNT 3.43 10^6/uL (4.20-5.40); RED CELL DISTRIBUTION WIDTH 13.3 % (12.0-15.0); WHITE BLOOD COUNT 7.2 x10^3/uL (4.8-10.8)
[2024-04-21 11:19] LABS: ALBUMIN 3.8 g/dL (3.2-5.5); ALBUMIN/GLOBULIN RATIO 1.4 (1.0-2.2); ALKALINE PHOSPHATASE 86 IU/L (42-121); ALT ALANINE AMINOTRANSFERASE 12 IU/L (10-60); AST ASPARTATE AMINOTRANSFERASE 18 IU/L (10-42); BILIRUBIN,TOTAL 0.4 mg/dL (0.2-1.0); BUN - BLOOD UREA NITROGEN 24 mg/dL (6-20); CALCIUM 9.5 mg/dL (8.5-10.3); CARBON DIOXIDE - CO2 26 mmol/L (21-32); CHLORIDE 108 mmol/L (101-111); CHOL/HDL RATIO 2.5 (<4.4); CHOLESTEROL 186 mg/dL; CREATININE 1.6 mg/dL (0.6-1.3); GFR - MDRD 31 (>89); GLUCOSE 91 mg/dL (74-104); HDL CHOLESTEROL 75 mg/dL; LDL CHOLESTEROL,CALCULATED 57 mg/dL; LDL/HDL RATIO 0.8 (<4.4); POTASSIUM 5.2 mmol/L (3.5-4.5); SODIUM 139 mmol/L (135-145); TOTAL PROTEIN 6.5 g/dL (6.4-8.9); TRIGLYCERIDES 268 mg/dL (48-352); VLDL CHOLESTEROL 54 mg/dL
== END 2024-04-21 10:17 | disposition home or self-care (01) ==
LOC: LAB 10:16
PROVIDERS: ATTEND Physician Assistant Medical
DX: E78.1 Pure hyperglyceridemia (principal); D64.9 Anemia, unspecified
CPT/HCPCS: 36415; 80053; 80061; 83721; 85025